=== PATIENT | female | born 1960 | race Caucasian/White ===

== ENCOUNTER 2024-01-04 00:41 | Emergency (ER) | payer MEDICARE, BC, SELFPAY ==
[2024-01-04 00:48] VITALS: BP 134/77; PULSE 74; RESP 18; TEMP 36.3; O2SAT 100; BMI 19.9
--- NOTE | 2024-01-04 01:00 | CRLHL7_ITS ---
For Patients: As a result of the Cures Act, medical imaging exams and procedure reports are released immediately into your electronic medical record. You may view this report before your referring provider. If you have questions, please contact your health care provider. Indication: Chest pain Technique: Two views of the chest Comparison: None Findings/Impression: No acute cardiopulmonary process detected. Dictated by Stanley Phillips MD @ 01/04/2024 2:29:38 AM (Electronically Signed)
--- NOTE | 2024-01-04 01:03 | ED_ITS ---
HPI - Chest Pain General Date Seen: 01/04/24 Chief Complaint: Chest Pain Stated Complaint: thinks she's having a heart attack Time Seen by Provider: 01/04/24 00:42 Source: patient Mode of arrival: ambulatory Limitations: no limitations History of Present Illness HPI narrative: Patient is a 63-year-old female presenting to emergency department for chest pain she states today she started noticing some left shoulder pain and she thought it was related to all yd work she was doing. She went to bed at about 10:00 o'clock and woke up a couple hours later noticing the pain is radiated to her left chest and left jaw. She was concerned because the pain was going away and took 3 of her 's nitro and she states has improved the pain. Admits she has had pain like this before and was told it was anxiety. Has had a previous stress test but this was over a decade ago she states. Was normal at that time. Only medications she takes Celebrex for right shoulder pain. She has started taking that today. States is a doll 3 of 10 left-sided chest pain currently and was a 7/10. Denies lightheadedness, dizziness, shortness of breath, abdominal pain, headache, vision changes, weakness, numbness. Does states she has some increased pain with deep breaths. No other concerns noted. Review of Systems Status of ROS Reports: 10 or more systems reviewed and unremarkable except as noted in History and below [facility] Social History Smoking Status: Former smoker Do you use any of these nicotine containing products: None Second hand tobacco smoke exposure: No How often do you have a drink containing alcohol: monthly or less How many standard drinks containing alcohol do you have on a typical day: 1 or 2 How often do you have six or more drinks on one occasion: Never AUDIT-C Alcohol total score: 1 Non-prescribed substance use: denies use service: No Exam Narrative Exam Narrative: Const: Well-nourished, Well-developed, in mild distress Eyes: PERRL, no conjunctival injection, and symmetrical lids HENT: Atraumatic external nose and ears. Moist mucous membranes. Neck: Symmetric, trachea midline, No thyromegaly. CVS: RRR, No murmurs or gallops. Peripheral pulses 2+ and equal in all extremities RESP: Unlabored respiratory effort. Clear to auscultation bilaterally. GI: Nontender/Nondistended, No rebound or guarding. MSK:Extremities w/o deformity, Normal Active ROM, tenderness to left-sided chest Skin: Warm, Dry. No rashes or lesions. Neuro: Normal Muscle tone, No focal neurological deficits. Psych: Awake, Alert, & Oriented x3. Appropriate mood and affect. Const Vital Signs, click to edit/add: Vital Signs - 24 hr 01/04/24 00:48 Temperature 97.4 F L Pulse Rate [Pulse Oximeter] 74 Respiratory Rate 18 Blood Pressure [Left Upper Arm] 134/77 Pulse Oximetry 100 Oxygen Delivery Method Room Air Course Vital Signs Vital signs: Initial Vital Signs Temperature 97.4 F L 01/04/24 00:48 Temperature Source Temporal Artery Scan 01/04/24 00:48 Pulse Rate 74 01/04/24 00:48 Pulse Rhythm Regular 01/04/24 00:48 Respiratory Rate 18 01/04/24 00:48 Blood Pressure 134/77 01/04/24 00:48 Blood Pressure Mean 96 01/04/24 00:48 Blood Pressure Position Supine 01/04/24 00:48 Pulse Oximetry 100 01/04/24 00:48 Oxygen Delivery Method Room Air 01/04/24 00:48 Vital Signs Temperature 97.4 F L 01/04/24 00:48 Pulse Rate 74 01/04/24 00:48 Respiratory Rate 18 01/04/24 00:48 Blood Pressure 134/77 01/04/24 00:48 Pulse Oximetry 100 01/04/24 00:48 Oxygen Delivery Method Room Air 01/04/24 00:48 Temperature 97.4 F L 01/04/24 00:48 Pulse Rate 74 01/04/24 00:48 Respiratory Rate 18 01/04/24 00:48 Blood Pressure 134/77 01/04/24 00:48 Pulse Oximetry 100 01/04/24 00:48 Oxygen Delivery Method Room Air 01/04/24 00:48 Medications Administered Medications: Generic Name Dose Route Start Last Admin Trade Name Freq PRN Reason Stop Dose Admin Lactated Ringer's 1,000 mls @ 1,000 mls/hr 01/04/24 03:19 01/04/24 03:15 Lactated Ringers 1000 Ml IV 01/04/24 04:18 1,000 mls/hr .Q1H ONE Administration Discontinued Medications Generic Name Dose Route Start Last Admin Trade Name Lary PRN Reason Stop Dose Admin Aspirin 324 mg 01/04/24 01:00 01/04/24 01:25 Aspirin 81 Mg Tab.Chew PO 01/04/24 01:01 324 mg ONCE ONE Administration Ketorolac Tromethamine 15 mg 01/04/24 01:39 01/04/24 01:47 Ketorolac 15 Mg/Ml Inj IVP 01/04/24 01:40 15 mg ONCE ONE Administration MDM - Chest Pain MDM Narrative Medical decision making narrative: Patient's 63-year-old female presenting for chest pain. The differential diagnosis of chest pain is broad and includes common etiologies such as musculoskeletal strain, GERD, pneumonia, etc. More serious etiologies considered include PE, coronary artery disease, pneumothorax, aortic dissection, aortic aneurysm. Of note when I did press on her chest she does state that reproduce the pain but it was not as severe as earlier. Considering palpitation is reproducing the pain this does seem more likely be musculoskeletal related specially because she states she did some yard work this morning. I will do chest x-ray, BMP, troponin, CBC, COVID/2/RSV, D-dimer and give her 324 of aspirin in the meantime. EKG and troponin returned showing no concerning abnormalities. Will repeat troponin. CBC and BMP showed no concerning findings. COVID/flu/RSV negative. D-dimer was elevated 0.86. Chest x-ray showed no concerning abnormalities. Due to the elevated D-dimer we will do a CTA to look for signs of a blood clot. Patient was starting to have more chest pain again and Toradol was given which she states improved her symptoms. This again helps me believe this might be more musculoskeletal related. Her heart score is 2. CTA are reviewed no acute abnormalities that would be causing her chest pain. There are some incidental findings as she can follow-up outpatient. Repeat troponin was within normal limits. At this time I do not believe she has any emergent causes of her chest pain. Of note her blood pressures did drop into the high 80s to low 90s systolic. She states her blood pressure is usually around 100-110. I did give her 1 L of fluids which did improve her most recent blood pressure to 102 systolic. She has been able to ambulate without any symptoms. Chest pain has not fully gone away yet but again is reproducible with palpation. Patient does not live in the area so informed and she is to follow up with her primary care provider about this chest pain. Due to this I will not schedule her an outpatient stress test in [place]. She is agreeable to this plan. I believe the pain is musculoskeletal in nature and she will be discharged. She is agreeable to this plan. Lab Data Labs: Lab Results 01/04/24 01/04/24 01/04/24 Range/Units 01:00 01:03 02:54 WBC 8.35 (4.50-11.00) K/uL RBC 3.80 L (4.00-5.20) m/uL Hgb 12.4 (12.0-16.0) gm/dL Hct 37.2 (33.0-51.0) % MCV 98 (80-100) fL MCH 33 (26-34) pg MCHC 33 (32-36) gm/dL RDW Coeff of Jose 11.3 L (11.5-15.5) % Plt Count 289 (140-440) K/uL Neut % (Auto) 46.9 (42.0-72.0) % Lymph % (Auto) 43.5 (20-44) % Tyler % (Auto) 7.5 (0.0-11.0) % Eos % (Auto) 1.6 (0.0-7.0) % Baso % (Auto) 0.4 (0.0-3.0) % Neut # (Auto) 3.92 (1.7-7.0) K/uL Lymph # (Auto) 3.63 H (0.90-2.90) K/uL Tyler # (Auto) 0.60 (0.00-0.90) K/UL Eos # (Auto) 0.13 (0.00-0.50) K/uL Baso # (Auto) 0.03 (0.00-0.30) K/uL Abs Immat Gran (auto) 0.01 (0.00-0.30) K/uL Imm/Tot Granulo (auto) 0.1 % D-Dimer Quant (PE/DVT) 0.86 H (0.00-0.50) ug/ml Sodium 137 (135-149) mmol/L Potassium 3.6 (3.6-5.1) mmol/L Chloride 102 (96-114) mmol/L Carbon Dioxide 28 (20-32) mmol/L Anion Gap 7 (7-15) mEq/L BUN 19 (7-30) mg/dL Creatinine 0.7 (0.5-1.5) mg/dL Estimated Creat Clear 46.59 Estimated GFR 96 ml/min Glucose 108 (60-115) mg/dL Calcium 9.3 (8.4-10.6) mg/dL Troponin I < 0.01 L < 0.01 L (0.01-0.04) ng/mL SARS-CoV-2 (PCR) Negative SARS-CoV-2 (Negative) Influenza Type A (PCR) Negative PCR FLU A (Negative) Influenza Type B (PCR) Negative PCR FLU B (Negative) RSV (PCR) Negative PCR RSV (Negative) Imaging Data Chest x-ray: Attestation: I have reviewed the pertinent imaging results. Radiologist's impression: No acute cardiopulmonary process detected. Dictated by Stanley Phillips MD @ 01/04/2024 2:29:38 AM CTA chest: Attestation: I have reviewed the pertinent imaging results. Radiologist's impression: 1. No acute abnormality appreciated. 2. Few scattered pulmonary nodules measuring up to 5 millimeters. Follow-up CT in 12 months may be considered for further evaluation. 3. Mild aneurysmal dilation of the ascending aorta measuring 4.0 centimeters. 4. Calcified atherosclerosis of the coronary arteries and aorta. Please note that all CT scans at this facility use dose modulation, iterative reconstruction, and/or weight-based dosing when appropriate to reduce radiation dose to as low as reasonably achievable. Dictated by Stanley Phillips MD @ 01/04/2024 2:56:00 AM ECG Data Attestation: I personally reviewed and interpreted this ECG as follows: Prior ECG tracings: not available for review Interpretation: Initial EKG at 00:49 Normal sinus rhythm with a rate of 73 beats per minute, normal intervals, normal axis, no ST or T-wave abnormalities. Repeat EKG when chest pain worsened at 01:37 normal sinus rhythm with a rate of 62 beats per minute, normal intervals, normal axis, no ST or T-wave abnormalities. Looks same as the EKG earlier this morning Discharge Plan Discharge Clinical Impression: Atypical chest pain Patient Disposition: Home, Self-Care Condition: Stable Instructions: Chest Wall Pain (ED) Additional Instructions: Take Tylenol and NSAIDs for your pain. Your CTA did show some scattered pulmonary nodules that she should follow up with the primary care provider within the next 12 months for re-evaluation. There is also mild aneurysmal dilation of the ascending aorta measuring about 4 cm but this does not require immediate attention and can also be follow-up with your primary care provider. Return to emergency department for re-evaluation for new or worsening symptoms. Follow Up/Referrals: Dilma Adler MD [Primary Care Provider] - Stand Alone Forms: Your Image by Brooke Info Instructions
[2024-01-04 01:13] LABS: Basophils Absolute Auto 0.03 K/uL (0.00-0.30); Basophils Percent Auto 0.4 % (0.0-3.0); Eosinophils Absolute Auto 0.13 K/uL (0.00-0.50); Eosinophils Percent Auto 1.6 % (0.0-7.0); Hematocrit 37.2 % (33.0-51.0); Hemoglobin* 12.4 gm/dL (12.0-16.0); Immature Granulocytes Abs Auto 0.01 K/uL (0.00-0.30); Immature Granulocytes Pct Auto 0.1 %; Lymphocytes Absolute Auto 3.63 K/uL (0.90-2.90); Lymphocytes Percent Auto 43.5 % (20-44); Mean Corpuscular HGB Conc 33 gm/dL (32-36); Mean Corpuscular Hemoglobin 33 pg (26-34); Mean Corpuscular Volume 98 fL (80-100); Monocytes Percent Auto 7.5 % (0.0-11.0); Neutrophils Absolute Auto 3.92 K/uL (1.7-7.0); Neutrophils Percent Auto 46.9 % (42.0-72.0); Platelet Count* 289 K/uL (140-440); RDW Coefficient of Variation % 11.3 % (11.5-15.5); White Blood Count* 8.35 K/uL (4.50-11.00)
[2024-01-04 01:15] LABS: Slide Review Reflex No
--- OUTSIDE RECORDS SUMMARY | 2024-01-04 01:17 | XMS_ITS | Clinical Summary ---
Author Organization [facility] Address [address] [place] [phone] Phone Care Team Providers Care English And Reading Instructor Name Role Phone Toby Barbosa MD Primary Care Provider [phone] Allergies Active Allergy Reactions Criticality Noted Date Comments Sulfa Drugs Adverse reaction Adhesive Tape RASH 02/21/2014 Medications Medication Sig Dispensed Refills Start Date End Date Status Multiple Vitamin (MULTIVITAMIN ADULT OR) Take 1 Tablet by mouth one time a day. Active [place]-3 Fatty Acids (FISH OIL OR) Take 1 Capsule by mouth one time a day. [place] 3 1500 mg, EPA 850 mg, DHA 450 mg, DPA 100 mg Active magnesium glycinate 120 MG capsule Take 4 Capsules by mouth one time a day. At supper time. Active Coenzyme Q10 (COQ10 OR) Take by mouth one time a day. L-carnitine fumarate included Active NEW DRUG 1 Each. Liposomal glutathyone Active NEW DRUG 1 Each. Liposomal-Vitamin C Active NEW DRUG 1 Each. PhytoB-L-4x Active Probiotic Product (PROBIOTIC OR) Take by mouth with meals. Digestzymes Active NEW DRUG 1 Each two times a day. GI-Detox Active NEW DRUG 2 Each at bedtime. Insomnitol Active B Complex Vitamins (B COMPLEX OR) Take 1 Tablet by mouth one time a day. B-[place] Active NEW DRUG 1 Each two times a day. Advance Tudca Active NEW DRUG [address] Reyna's Bitters #9 Active celecoxib (CeleBREX) 200 MG capsuleIndications:P rimary osteoarthritis of right knee,Impingement syndrome, shoulder, right Take 1 Capsule by mouth one time a day. 31 Capsule 1 12/30/2023 Active Hospital, Clinic, or Other Facility Administered Medication Ordered Dose Route Frequency Start Date End Date Status triamcinolone acetonide (Kenalog-40) 40 MG/ML injection 40 mgIndications:Primary osteoarthritis of right knee 40 mg IX ONCE 12/30/2023 03/29/2024 Active Active Problems Problem Noted Date Diagnosed Date Chronic right shoulder pain 12/30/2023 Vertigo 11/27/2023 Recurrent herpes labialis 12/11/2011 Osteoarthritis 12/11/2011 Hyperlipidemia 12/11/2011 Encounters Date Type Department Care Team Description 12/30/2023 10:30 AM CDT Office Visit [facility] [address] [facility] [address] [place] [address] Siomara Mcgarry, PT Chronic right shoulder pain (Primary Dx) 12/30/2023 10:00 AM CDT Office Visit [place] [address] [facility] ORTHOPEDICS [address] [place] [phone] Dana Toussaint I, PAJuliánC Primary osteoarthritis of right knee (Primary Dx); Impingement syndrome, shoulder, right 12/30/2023 Plan of Care Documentation [address] PHYSICAL THERAPY [address] [place] [address] 12/30/2023 Travel 12/17/2023 2:30 PM CDT Office Visit [address] PHYSICAL THERAPY [address] [place] [address] Christian Mcgarry, PT Vertigo (Primary Dx) 12/17/2023 Travel 11/30/2023 9:30 AM CDT Office Visit [facility] OT[facility] [address] [place] [address] Pauline Lee, SAUSAGE MACHINE OPERATOR, DOORPERSON OR LUGGAGE PORTER Asymmetrical hearing loss (Primary Dx); Sensorineural hearing loss (SNHL) of both ears; Dizziness 11/30/2023 Travel 11/27/2023 Plan of Care Documentation [facility] [address] [facility] [address] [place] [address] 11/18/2023 12:30 PM CDT Office Visit [address] PHYSICAL THERAPY [address] [place] [phone] Christian Mcgarry P, PT Dizziness (Primary Dx); Vertigo 11/18/2023 Travel 11/02/2023 1:00 PM CDT Ancillary Procedure [place] [address] [facility] RADIOLOGY MRI [address] [place] [phone] Pauline Lee APRN, DOORPERSON OR LUGGAGE PORTER Asymmetrical hearing loss 11/02/2023 Travel 10/20/2023 12:00 PM CDT Office Visit [facility] OTOLARYNGOLOGY [address] [place] [address], [place] [address] Pauline Lee APRN, STAN Asymmetrical hearing loss (Primary Dx); Dizziness; Sensorineural hearing loss (SNHL) of both ears 10/20/2023 11:00 AM CDT Office Visit [facility] AUDIOLOGY [address] [place] [address], [place] [address] Mike Woodward AuD Sensory hearing loss, bilateral (Primary Dx) 10/20/2023 Travel 10/15/2023 - 10/15/2023 11:59 PM CDT Hospital Encounter OS FILMS DEPARTMENT Dana Toussaint PA-C Impingement syndrome, shoulder, right Discharge Disposition: Discharged from Last 3 Months Immunizations Name Administration Dates Next Due Hepatitis B, Adult 11/10/2008,06/08/2008, 009 Influenza Intradermal (18-64 Yrs) Flu Clinic 01/29/2016 Influenza Quad Preservative Free 01/21/2019,01/18,02/12/2015 Influenza Trivalent Preservative Free 02/01/2013 ,02/16/2011,03/29/2010 Influenza Trivalent With Preservative 02/15/2014 ,02/13/2012 TD >7yrs With Preservative 05/14/2008,07/28/1995 Tdap (7 years and older) 03/19/2018,05/10/2008 Zoster Zostavax (Shingles) 06/21/2015 Surgical History Surgery Date Site/Laterality Comments SECTION x 4 DILATION AND CURETTAGE OF UTERUS due to menorrhagia KNEE ARTHROSCOPY 04/20/2002 - 04/19/2003 right UMBILICAL HERNIA REPAIR 04/20/1998 - 04/19/1999 ENDOMETRIAL ABLATION COLONOSCOPY,FLEX,SCREEN 05/03/2014 repeat in [address] yu COLONOSCOPY,FLEX,SCREEN 05/10/2019 TOTAL ABDOM HYSTERECTOMY 05/14/2013 Bilateral Medical History Medical History Date Comments Osteoarthritis of knee Recurrent cold sores Cardiomyopathy, idiopathic (HCC) 2004 last Echo & Stress test 07/2011 - normal Back pain, chronic low back Hyperlipidemia, mixed Stress incontinence, female Family History Medical History Relation Comments Hypothyroidism Brother Hypothyroidism Daughter Colon Cancer Father Breast Cancer Maternal Grandmother Hypothyroidism Mother Lipid Elevation Mother Cancer Paternal Grandfather pancreatic Cardiovascular Disease Paternal Grandfather Hypothyroidism Sister Relation Status Comments Brother Daughter Father Maternal Grandmother Mother Paternal Grandfather Sister Social History Tobacco Use Types Packs/Day Years Used Date Smoking Tobacco: Former Cigarettes 1.5 14 0 04/20/1974 - 04/20/1988 Passive Smoke Exposure: Past Smokeless Tobacco: Never Tobacco Cessation:Counseling Given: Not Answered Alcohol Use Standard Drinks/Week Comments Yes 2.5 (1 standard drink = 0.6 oz p ure alcohol) Social Connection and Isolat ion Panel [NHANES] Answer Date Recorded In a typical week, how many times do you talk on the phone with family, friends, or neighbors? Three times a week 06/22/2023 How often do you get togethe r with friends or relatives? Once a week 06/22/2023 How often do you attend chur or gnosticism services? More than 4 times per year 06/22/2023 Do you belong to any clubs o r organizations such as yarsani groups, unions, fraternal or athletic groups, or school groups? Yes 06/22/2023 How often do you attend meet ings of the clubs or organizations you belong to? More than 4 times per year 06/22/2023 Are you , , di vorced, , never , or living with a partner? 06/22/2023 AUDIT-C Answer Date Recorded Q1: How often do you have a drink containing alc ohol? Monthly or less 06/22/2023 Q2: How many drinks containi ng alcohol do you have on a typical day when you are drinking? 1 or 2 06/22/2023 Q3: How often do you have si x or more drinks on one occasion? Never 06/22/2023 PHQ-2 Answer Date Recorded PHQ-2 Total 0 10/20/2023 [facility] - Occupational Stress Questionnaire Answer Date Recorded Do you feel stress - tense, restless, nervous, or anxious, or unable to sleep at night because your mind is troubled all the time - these days? To some extent 06/22/2023 Exercise Vital Sign Answer Date Recorde d On average, how many days pe r week do you engage in moderate to strenuous exercise (like a brisk walk)? 2 days 06/22/2023 On average, how many minutes do you engage in exercise at this level? 60 min 06/22/2023 Sex and Gender Information Value Date Recorded Sex Assigned at Not on file Gender Identity Not on file Sexual Orientation Not on file Job Start Date Occupation Industry Not on file Not on file Not on file Obstetrics History Para Term AB IAB SAB Ectopic Molar Multiple Living Live Births 4 4 4 0 4 Date Outcome GA Total Labor Labor/2nd/3rd Weight Sex Type Anes PTL Marta A1 A5 Name Clin Term Term Term Term Last Filed Vital Signs Vital Sign Reading Time Taken Comments Blood Pressure 104/58 11/30/2023 9:53 AM CDT Pulse 67 12/30/2023 9:52 AM CDT Temperature 36.1 ??C (97 ??F) 12/30/2023 9:52 AM CDT Respiratory Rate 16 03/04/2016 1:20 PM [facility] Oxygen Saturation 98% 12/30/2023 9:52 AM CDT Inhaled Oxygen Concentration - - Weight 54.8 kg (120 lb 13 oz) 12/30/2023 9:52 AM CDT Height 162.9 cm (5' 4.13) 06/22/2023 1:50 PM CS T Body Mass Index 20.66 06/22/2023 1:50 PM [facility] Plan of Treatment Upcoming Encounters Date Type Department Care Team (Late st Contact Info) Description 01/11/2024 9:45 AM CDT Appointment [facility] [address] [facility] PHYSICAL TH[facility]APY [address] [place] [address] Siomara Mcgarry, PT [address] [place] [phone] 01/27/2024 3:30 PM CDT Appointment [facility] PHYSICAL THERAPY [address] [place] [phone] Siomara Mcgarry, PT [address] [place] [address] 01/29/2024 9:45 AM CDT Appointment [facility] PHYSICAL THERAPY [address] [place] [phone] Siomara Mcgarry, PT [address] [place] [address] 02/01/2024 9:45 AM CDT Appointment [facility] PHYSICAL THERAPY [address] [place] [address] Siomara Mcgarry, PT [address] [place] [phone] 02/03/2024 9:45 AM CDT Appointment [facility] PHYSICAL THERAPY [address] [place] [address] Siomara Mcgarry, PT [address] [place] [address] Health Maintenance Due Date Last Done Comments CT Colonography 1960 Cologuard 1958 FIT/FOBT 1960 Sigmoidoscopy 1960 COVID-19 Vaccine (#1) 07/07/1963 Shingrix (Zoster recombinant) vaccine (Standing Order) (1 of 2) 08/16/2015 Pneumococcal Vaccine: 65+ yrs (Standing Order) (1 of 1 - PCV) 07/07/2023 Influenza Vaccine Seasonal (Standing Order) (#1) 2023 01/21/2019, 02/04/2016, 01/29/2016, Additional history exists MAMMO,SCREEN 07/07/2024 07/08/2023, 06/19, 05/03/2014, Additional history exists TETANUS (Standing Order) 03/19/2028 018, 05/14/2008, 05/10/2008, Additional history exists Colonoscopy 05/10/2029 05/10/2019, 05/03/2014 Colorectal Cancer Screening 05/10/2029 Hepatitis B Vaccine (Standing Order) Completed 11/10/2008, 06/08/2008, 05/10/2008 PERTUSSIS (Standing Order) Completed 03/19/2018, WELCOME TO MEDICARE Completed 06/22/2023 DXA,FEMALES AGE 65 OR GREATER Completed 07/08/2023 HPV Vaccine (Standing Order) Aged Out No longer eligible based on patient's age to complete this topic Procedures Procedure Name Priority Date/Time Associated Diagnosis Comments DRAIN/INJECT LARGE JOINT/BURSA Routine 12/30/2023 10:12 AM CDT Primary osteoarthritis of right knee MR BRAIN WO W CONTRAST Routine 11/02/2023 2:07 PM CDT Asymmetrical hearing loss MR IAC WO W CONTRAST Routine 11/02/2023 2:07 PM CDT Asymmetrical hearing loss TYMPANOMETRY Routine 10/20/2023 12:00 AM CDT Sensory hearing loss, bilateral COMPREHENSIVE HEARING TEST Routine 10/20/2023 12:00 AM CDT Sensory hearing loss, bilateral OS XR FLUORO GUIDED INJECTION Routine 10/15/2023 12:00 AM CDT Impingement syndrome, shoulder, right DXA SPINE HIPS AND OR PERIPHERAL Routine 07/08/2023 2:45 PM CDT Postmenopausal MAMM ALONDRA SCREEN DIGITAL BILAT Routine 07/08/2023 2:25 PM CDT Encounter for screening mammogram for malignant neoplasm of breast COLONOSCOPY,FLEX,DIAG NOSTIC 05/10/2019 12:00 AM [employer] [facility] from Last 3 Months or Most Recently Relevant to Health Maintenance Results * MR IAC WO W CONTRAST (11/02/2023 2:07 PM CDT) Anatomical Region Laterality Modality Magnetic Resonan ce 11/02/2023 2:07 PM CDT Narrative 11/02/2023 3:56 PM CDT This document is currently in Final Status Exam MR IAC WO W CONTRAST, MR BRAIN WO W CONTRAST CLINICAL INFORMATION: Hearing loss, sensorineural; ??Other specified hearing loss, bilateral; COMPARISON: None. FINDINGS: There is no restricted diffusion in the brain. Normal position of the cerebellar tonsils. No hydrocephalus. There is mild bilateral periventricular and subcortical white matter T2 hyperintensity which is nonspecific but most likely due to sequela of chronic small vessel ischemic disease given the patient's age. There is no intracranial hemorrhage, mass effect, or midline shift. The normal major intracranial vascular flow voids are present. The cochleae and semicircular canals are unremarkable. There is no internal auditory canal mass or cerebellopontine angle mass. The visualized portions of the 7th and 8th cranial nerves are unremarkable. There is no abnormal contrast enhancement in the internal auditory canals. There is no abnormal intracranial contrast enhancement. The globes and orbits are symmetric and grossly unremarkable. The visualized paranasal sinuses and right mastoid air cells are clear. There is nonspecific fluid in the left mastoid air cells. IMPRESSION: No evidence of acute intracranial pathology and no etiology for sensorineural hearing loss identified. Dictated By: Calos Cooper MD 11/02/2023 2:57 PM Edited By: PATRICE 11/02/2023 3:11 PM Electronically Signed: Calos Cooper MD 11/02/2023 3:56 PM Procedure Note Calos Cooper MD - 11/02/2023 This document is currently in Final Status Exam MR IAC WO W CONTRAST, MR BRAIN WO W CONTRAST CLINICAL INFORMATION: Hearing loss, sensorineural; Other specifiedhearing loss, bilateral; COMPARISON: None. FINDINGS: There is no restricted diffusion in the brain. Normal positionof the cerebellar tonsils. No hydrocephalus. There is mild bilateralperiventricular and subcortical white matter T2 hyperintensity which isnonspecific but most likely due to sequela of chronic small vesselischemic disease given the patient's age. There is no intracranialhemorrhage, mass effect, or midline shift. The normal major intracranialvascular flow voids are present. The cochleae and semicircular canals are unremarkable. There is nointernal auditory canal mass or cerebellopontine angle mass. Thevisualized portions of the 7th and 8th cranial nerves are unremarkable.There is no abnormal contrast enhancement in the internal auditory canals.There is no abnormal intracranial contrast enhancement. The globes and orbits are symmetric and grossly unremarkable. Thevisualized paranasal sinuses and right mastoid air cells are clear. Thereis nonspecific fluid in the left mastoid air cells. IMPRESSION: No evidence of acute intracranial pathology and no etiologyfor sensorineural hearing loss identified. Dictated By: Calos Cooper MD 11/02/2023 2:57 PM Edited By: PATRICE 11/02/2023 3:11 PM Electronically Signed: Calos Cooper MD 11/02/2023 3:56 PM Pauline Lee SAUSAGE MACHINE OPERATOR, DOORPERSON OR LUGGAGE PORTER EC MRI ORDERA BLES * MR BRAIN WO W CONTRAST (11/02/2023 2:07 PM CDT) Anatomical Region Laterality Modality Head Magnetic Resonan ce 11/02/2023 2:07 PM CDT Narrative 11/02/2023 3:56 PM CDT This document is currently in Final Status Exam MR IAC WO W CONTRAST, MR BRAIN WO W CONTRAST CLINICAL INFORMATION: Hearing loss, sensorineural; ??Other specified hearing loss, bilateral; COMPARISON: None. FINDINGS: There is no restricted diffusion in the brain. Normal position of the cerebellar tonsils. No hydrocephalus. There is mild bilateral periventricular and subcortical white matter T2 hyperintensity which is nonspecific but most likely due to sequela of chronic small vessel ischemic disease given the patient's age. There is no intracranial hemorrhage, mass effect, or midline shift. The normal major intracranial vascular flow voids are present. The cochleae and semicircular canals are unremarkable. There is no internal auditory canal mass or cerebellopontine angle mass. The visualized portions of the 7th and 8th cranial nerves are unremarkable. There is no abnormal contrast enhancement in the internal auditory canals. There is no abnormal intracranial contrast enhancement. The globes and orbits are symmetric and grossly unremarkable. The visualized paranasal sinuses and right mastoid air cells are clear. There is nonspecific fluid in the left mastoid air cells. IMPRESSION: No evidence of acute intracranial pathology and no etiology for sensorineural hearing loss identified. Dictated By: Calos Cooper MD 11/02/2023 2:57 PM Edited By: 11/02/2023 3:11 PM Electronically Signed: Calos Cooper MD 11/02/2023 3:56 PM Procedure Note Calos Cooper MD - 11/02/2023 This document is currently in Final Status Exam MR IAC WO W CONTRAST, MR BRAIN WO W CONTRAST CLINICAL INFORMATION: Hearing loss, sensorineural; Other specifiedhearing loss, bilateral; COMPARISON: None. FINDINGS: There is no restricted diffusion in the brain. Normal positionof the cerebellar tonsils. No hydrocephalus. There is mild bilateralperiventricular and subcortical white matter T2 hyperintensity which isnonspecific but most likely due to sequela of chronic small vesselischemic disease given the patient's age. There is no intracranialhemorrhage, mass effect, or midline shift. The normal major intracranialvascular flow voids are present. The cochleae and semicircular canals are unremarkable. There is nointernal auditory canal mass or cerebellopontine angle mass. Thevisualized portions of the 7th and 8th cranial nerves are unremarkable.There is no abnormal contrast enhancement in the internal auditory canals.There is no abnormal intracranial contrast enhancement. The globes and orbits are symmetric and grossly unremarkable. Thevisualized paranasal sinuses and right mastoid air cells are clear. Thereis nonspecific fluid in the left mastoid air cells. IMPRESSION: No evidence of acute intracranial pathology and no etiologyfor sensorineural hearing loss identified. Dictated By: Calos Cooper MD 11/02/2023 2:57 PM Edited By: 11/02/2023 3:11 PM Electronically Signed: Calos Cooper MD 11/02/2023 3:56 PM Pauline Lee SAUSAGE MACHINE OPERATOR, DOORPERSON OR LUGGAGE PORTER EC MRI ORDERA BLES * TYMPANOMETRY (10/20/2023 12:00 AM CDT) 10/20/2023 Mike Woodward Felix EC PROCEDURES * COMPREHENSIVE HEARING TEST (10/20/2023 12:00 AM CDT) 10/20/2023 Mike Woodward Felix EC PROCEDURES * OS XR FLUORO GUIDED INJECTION (10/15/2023 12:00 AM CDT) 10/15/2023 Narrative Procedure Note 10/16/2023 The actual exam was performed at [facility] on 10/15/2023. This exam does not have a report residing in this EMR. Please check for ascanned in report, Care Everywhere Outside Records, or call the performinglocation for the report. This order was placed into the system and automatically finalized on10/16/2023. Dana Toussaint PA-C EC OS FILMS AUDELIA GING ORDERABLES * DXA SPINE HIPS AND OR PERIPHERAL (07/08/2023 2:45 PM CDT) Anatomical Region Laterality Modality Spine, L-spine, Hip, Pelvis, Other Radiographic Imaging 07/08/2023 2:45 PM CDT Narrative 07/08/2023 3:28 PM CDT This document is currently in Final Status Exam DXA SPINE HIPS AND OR PERIPHERAL CLINICAL INFORMATION: DXA exam; ??Asymptomatic menopausal state. NOTE: Patient Wt: 123 lb 9.1 oz (56.1 kg). COMPARISON: None. FINDINGS: The T-score in the L1-L4 vertebral bodies is -1.4 which is consistent with osteopenia. The T-score in the right femoral neck is -1.6 which is consistent with osteopenia. The T-score in the left femoral neck is -1.4 which is consistent with osteopenia. The 10-year risk of a major osteoporotic fracture is 8.1% and of a hip fracture is 0.9%. Please refer to the computer-generated printouts in PACS for bone mineral density values if necessary. Dictated By: Calos Cooper MD 07/08/2023 2:55 PM Edited By: MADDY 07/08/2023 3:11 PM Electronically Signed: Calos Cooper MD 07/08/2023 3:28 PM Procedure Note Calos Cooper MD - 07/08/2023 This document is currently in Final Status Exam DXA SPINE HIPS AND OR PERIPHERAL CLINICAL INFORMATION: DXA exam; Asymptomatic menopausal state. NOTE:Patient Wt: 123 lb 9.1 oz (56.1 kg). COMPARISON: None. FINDINGS: The T-score in the L1-L4 vertebral bodies is -1.4 which isconsistent with osteopenia. The T-score in the right femoral neck is -1.6 which is consistent withosteopenia. The T-score in the left femoral neck is -1.4 which is consistent withosteopenia. The 10-year risk of a major osteoporotic fracture is 8.1% and of a hipfracture is 0.9%. Please refer to the computer-generated printouts in PACS for bone mineraldensity values if necessary. Dictated By: Calos Cooper MD 07/08/2023 2:55 PM Edited By: MADDY 07/08/2023 3:11 PM Electronically Signed: Calos Cooper MD 07/08/2023 3:28 PM Toby Barbosa MD EC DEXA ORDERABLES * MAMM ALONDRA SCREEN DIGITAL BILAT (07/08/2023 2:25 PM CDT) Anatomical Region Laterality Modality Breast Bilateral Mammography 07/08/2023 2:25 PM CDT Narrative 07/09/2023 4:31 PM CDT This document is currently in Final Status Exam MAMM ALONDRA SCREEN DIGITAL BILAT COMPARISON: 07/14/2017. TECHNICAL: Bilateral CC and MLO views, including tomosynthesis. ?? Computer-Aided Detection System was utilized. BREAST DENSITY: ??There are scattered areas of fibroglandular density. Interval weight loss increases breast density. FINDINGS: No suspicious masses or calcifications identified. No architectural distortion. IMPRESSION: No mammographic evidence of malignancy identified. Follow up mammography according to the [employer] guidelines is recommended. BI-RADS 1: Negative. TRACKING PURPOSES: ??Return to annual screening. Dictated By: Dr. Qamar Adair 07/09/2023 2:01 PM Edited By: MATEO 07/09/2023 3:34 PM Electronically Signed: Dr. Qamar Adair 07/09/2023 4:31 PM Procedure Note Nick Adair MD - 07/09/2023 This document is currently in Final Status Exam MAMM ALONDRA SCREEN DIGITAL BILAT COMPARISON: 07/14/2017. TECHNICAL: Bilateral CC and MLO views, including tomosynthesis. Computer-Aided Detection System was utilized. BREAST DENSITY: There are scattered areas of fibroglandular density. Interval weight loss increases breast density. FINDINGS: No suspicious masses or calcifications identified. Noarchitectural distortion. IMPRESSION: No mammographic evidence of malignancy identified. Follow upmammography according to the [employer] guidelines isrecommended. BI-RADS 1: Negative. TRACKING PURPOSES: Return to annual screening. Dictated By: Dr. Qamar Adair 07/09/2023 2:01 PM Edited By: MATEO 07/09/2023 3:34 PM Electronically Signed: Dr. Qamar Adair 07/09/2023 4:31 PM Toby Barbosa MD EC MAMMOGRAPHY ORDER SOPHIA * COLONOSCOPY,FLEX,DIAGNOSTIC (05/10/2019 12:00 AM [facility]) 05/10/2019 05/10/2019 Provider Abstract EC PROCEDURES [facility] from Last 3 Months or Most Recently Relevant to Health Maintenance Care Teams English And Reading Instructor Relationship Specialty Start Date End Date Toby Barbosa MD [address] [facility] [place] [id number] PCP - General Family Medicine 08/18/23
--- OUTSIDE RECORDS SUMMARY | 2024-01-04 01:17 | XMS_ITS | Encounter Summary ---
Author Organization [facility] Address [address] [address] Phone Care Team Providers Care School Year Nanny Name Role Phone Toby Barbosa MD Primary Care Provider Reason for Visit * Therapy (Routine) - Authorized Specialty Diagnoses / Procedures Referred By Kelvin tucker Referred To Contact Physical Therapy Diagnoses Impingement syndrome, shoulder, right Dana Toussaint PA-C [address] [place] [address] Referral ID Status Reason Start Date Expiration Date V isits Requested Visits Authorized [id number] Authorized 12/30/2023 12/29/2024 99 99 Encounter Details Date Type Department Care Team (Late st Contact Info) Description 12/30/2023 10:30 AM CDT Office Visit [facility] [address] CLINIC PHYSICAL THERAPY [address] [place], [place] [address] Siomara Mcgarry, PT [address] [place] [address] Chronic right shoulder pain (Primary Dx) Social History Tobacco Use Types Packs/Day Years Used Date Smoking Tobacco: Former Cigarettes 1.5 14 0 04/20/1974 - 04/20/1988 Passive Smoke Exposure: Past Smokeless Tobacco: Never Alcohol Use Standard Drinks/Week Comments Yes 2.5 [...] How often do you attend chur or congregation services? More than 4 times per year 06/22/2023 Do you belong to any clubs o r organizations such as pentecostalism groups, unions, fraternal or athletic groups, or [...] Answer Date Recorded PHQ-2 Total 0 10/20/2023 [facility]at ional [facility] - Occupational Stress Questionnaire Answer Date Recorded [...] file Not on file Not on file documented as of this encounter Plan of Treatment Upcoming Encounters Date Type Department Care Team (Late st Contact Info) Description 01/11/2024 9:45 AM CDT Appointment [facility] 34 CLINIC PHYSICAL THERAPY [address] [place] [address] Siomara Mcgarry, PT [address] [place] [address] 01/27/2024 3:30 PM CDT Appointment [place] [address] [facility] PHYSICAL TH[facility]APY [address] [place] [address] Siomara Mcgarry, PT [address] [place] [phone] 01/29/2024 9:45 AM CDT Appointment [facility] 34 CLINIC PHYSICAL THERAPY [address] [place] [address] Siomara Mcgarry, PT [address] [place] [address] 02/01/2024 9:45 AM CDT Appointment [facility] 34 CLINIC PHYSICAL THERAPY [address] [place] [address] Siomara Mcgarry, PT [address] [place] [phone] 02/03/2024 9:45 AM CDT Appointment [facility] 34 CLINIC PHYSICAL THERAPY [address] [place] [address] Siomara Mcgarry, PT [address] [place] [address] Scheduled Referrals Name Type Priority Associated Diagnoses Orde r Schedule APPT WITH PHYSICAL THERAPY [facility] REFERRAL Routine Impingement syndrome, shoulder, right Ordered: 12/30/2023 documented as of this encounter Visit Diagnoses Diagnosis Chronic right shoulder pain- Primary Pain in joint, shoulder region documented in this encounter Care Teams School Year Nanny Relationship Specialty Start Date End Date Toby Barbosa MD [address] [facility] [place] [address] PCP - General Family Medicine 08/18/23 documented as of this encounter
--- OUTSIDE RECORDS SUMMARY | 2024-01-04 01:17 | XMS_ITS | Encounter Summary ---
Author Organization [facility] Address [address] [address] Phone Care Team Providers Care Conveyor Line Bakery Worker Name Role Phone Toby Barbosa MD Primary Care Provider [phone] Encounter Details Date Type Department Care Team (Latest Contact Info) Description 12/30/2023 Travel Social History Tobacco Use Types Packs/Day Years [...] 06/22/2023 How often do you attend chur ch or yarsani services? More than 4 times per year 06/22/2023 Do you belong to any clubs o r organizations such as taoist groups, unions, fraternal or athletic groups, or [...] Answer Date Recorded PHQ-2 Total 0 10/20/2023 [facility] - Occupational Stress Questionnaire Answer Date Recorded [...] Info) Description 01/11/2024 9:45 AM CDT Appointment [place] [address] [facility] PHYSICAL THERAPY [address] [place] [address] Siomara Mcgarry, PT [address] [place] [address] 01/27/2024 3:30 PM CDT Appointment [facility] 34 CLINIC PHYSICAL THERAPY [address] [place] [address] Siomara Mcgarry, PT [address] [place] [phone] 01/29/2024 9:45 AM CDT Appointment [facility] 34 CLINIC PHYSICAL THERAPY [address] [place] [address] Siomara Mcgarry, PT [address] [place] [address] 02/01/2024 9:45 AM CDT Appointment [facility] 34 CLINIC PHYSICAL THERAPY [address] [place] [address] [phone] Siomara Mcgarry, PT [address] [place] [address] 02/03/2024 9:45 AM CDT Appointment [facility] 34 CLINIC PHYSICAL THERAPY [address] [place] [address] [phone] Siomara Mcgarry, PT [address] [place] [address] documented as of this encounter Visit Diagnoses Not on filedocumented in this encounter Care Teams Conveyor Line Bakery Worker Relationship Specialty Start Date End Date Toby Barbosa MD [address] [place] [address] PCP - General Family Medicine 08/18/23 documented as of this encounter
--- OUTSIDE RECORDS SUMMARY | 2024-01-04 01:17 | XMS_ITS | Encounter Summary ---
Author Organization [facility] Address [address] [address] Phone Care Team Providers Care Blood Donor Recruiter Supervisor Name Role Phone Toby Barbosa MD Primary Care Provider [phone] Encounter Details Date Type Department Care Team (Late st Contact Info) Description 12/30/2023 Plan of Care Documentation 34 CLINIC PHYSICAL THERAPY [address] [place] [address] Social History Tobacco Use Types Packs/Day Years [...] often do you attend chur ch or sabianist services? More than 4 times per year 06/22/2023 Do you belong to any clubs o r organizations such as baptist groups, unions, fraternal or athletic groups, or [...] Answer Date Recorded PHQ-2 Total 0 10/20/2023 [facility] Occupat ional [facility] - Occupational Stress Questionnaire Answer Date [...] Info) Description 01/11/2024 9:45 AM CDT Appointment 34 CLINIC PHYSICAL THERAPY [address] [place] [address] Siomara Mcgarry, PT [address]05 [place] [phone] 01/27/2024 3:30 PM CDT Appointment 34 CLINIC PHYSICAL THERAPY [address] [place] [address] Siomara Mcgarry, PT [address] [place] [phone] 01/29/2024 9:45 AM CDT Appointment 34 CLINIC PHYSICAL THERAPY [address] [place] [address] Siomara Mcgarry, PT [address] [place] [phone] 02/01/2024 9:45 AM CDT Appointment 34 [facility]INIC PHYSICAL THERAPY [address] [place] [address] Siomara Mcgarry, PT [address] [place] [phone] 02/03/2024 9:45 AM CDT Appointment 34 [facility]INIC PHYSICAL THERAPY [address] [place] [address] Siomara Mcgarry, PT [address] [place] [address] documented as of this encounter Visit Diagnoses Not on filedocumented in this encounter Care Teams Blood Donor Recruiter Supervisor Relationship Specialty Start Date End Date Toby Barbosa MD [address]05 [place] [address] PCP - General Family Medicine 08/18/23 documented as of this encounter
--- OUTSIDE RECORDS SUMMARY | 2024-01-04 01:18 | XMS_ITS | Encounter Summary ---
Author Organization [facility] Address [address] [address] Phone Care Team Providers Care Detacker Name Role Phone Toby Barbosa MD Primary Care Provider [phone] Reason for Visit * Reason Comments Dizziness * Therapy (Routine) - Authorized Specialty Diagnoses / Procedures Referred By Kelvin tucker Referred To Contact Physical Therapy Diagnoses Asymmetrical hearing loss Pauline Lee, HOME OFFICE CLAIMS EXAMINER, CONE TRUCKER [address] [place] [address] Referral ID Status Reason Start Date Expiration Date V isits Requested Visits Authorized [id number] Authorized 10/20/2023 10/19/2024 99 99 Encounter Details Date Type Department Care Team (Late st Contact Info) Description 12/17/2023 2:30 PM CDT Office Visit [facility] [address] CLINIC PHYSICAL THERAPY [address] [place], [place] [phone] Christian Mcgarry, PT [address] [place] [address] Vertigo (Primary Dx) Social History Tobacco Use Types [...] often do you attend chur ch or cheondoism services? More than 4 times per year 06/22/2023 Do you belong to any clubs o r organizations such as anabaptist groups, unions, fraternal or athletic groups, or [...] Answer Date Recorded PHQ-2 Total 0 10/20/2023 [facility] of Occupat ional Health - Occupational [...] on file documented as of this encounter Progress Notes * Christian Mcgarry P, PT - 12/17/2023 2:30 PM CDT Physical Therapy Daily Note Visit: 2 SUBJECTIVE Patient reports that he has had no spinning episodes since last visit. Dizziness overall is much improved as well. Almost cancelled today's appointment but thought she should come for cahto. Home program compliance is good. Pain: No pain. Pain is not associated with this episode or with this problem. OBJECTIVE Benign paroxysmal positional vertigo testing: negative with chip karan pike x 3 to left and x 2 to right, roll test negative x 2 bilaterally. Gait: within normal limits Gait with head turns: mild deficit with diagonals down to right and up to left Treatment Today: Treatment today included neuromuscular reeducation. Walking with head turn routine: left right, up down, diagonals in both directions Educated on possible let vestibular hypofunction and treatment, prognosis, home program. Response to Education: Verbalized Understanding ASSESSMENT Response to Treatment: Good, benign paroxysmal positional vertigo is negative. May have mild hypofunction so provided withwalking with head turn routine Progress Towards Goals: Goals met PLAN OF CARE No further visits planned. Instructed to continue walking with head turn exercise daily for 6 weeks. If symptoms do return or worsen she can return to therapy as needed. Timed Code Treatment Minutes: 23 minutes Total Treatment Time: PT Therapeutic Procedures Time Entry (in minutes) Neuromuscular Re-Education Time Entry (CPT 07259): 23 PT Total Time: 23 Minutes Christian Mcgarry PT documented in this encounter Plan of Treatment Upcoming Encounters Date Type Department Care Team (Late st Contact Info) Description 01/11/2024 9:45 AM CDT Appointment [place] [address] CLINIC PHYSICAL THERAPY [address] [place] [address] Siomara Mcgarry, PT [address] [place] [address] 01/27/2024 3:30 PM CDT Appointment [facility] 34 CLINIC PHYSICAL THERAPY [address] [place] [address] Siomara Mcgarry, PT [address] [place] [phone] 01/29/2024 9:45 AM CDT Appointment [facility] 34 CLINIC PHYSICAL THERAPY [address] [place] [address] Siomara Mcgarry, PT [address] [place] [phone] 02/01/2024 9:45 AM CDT Appointment [facility] 34 CLINIC PHYSICAL THERAPY [address] [place] [address] Siomara Mcgarry, PT [address] [place] [address] 02/03/2024 9:45 AM CDT Appointment [facility] 34 CLINIC PHYSICAL THERAPY [address] [place] [address] Siomara Mcgarry, PT [address] [place] [address] documented as of this encounter Visit Diagnoses Diagnosis Vertigo- Primary Dizziness and giddiness documented in this encounter Care Teams Detacker Relationship Specialty Start Date End Date Toby Barbosa MD [address] [place] [address] PCP - General Family Medicine 08/18/23 documented as of this encounter
--- OUTSIDE RECORDS SUMMARY | 2024-01-04 01:18 | XMS_ITS | Encounter Summary ---
Author Organization [facility] Address [address] [address] Phone Care Team Providers Care Stock Puller Name Role Phone Toby Barbosa MD Primary Care Provider [phone] Encounter Details Date Type Department Care Team (Late st Contact Info) Description 10/20/2023 11:00 AM CDT Office Visit [facility] [address] [place] [address] Mike Woodward, Felix [address] [place] [address] Sensory hearing loss, bilateral (Primary Dx) Social History Tobacco Use Types [...] week 06/22/2023 How often do you attend [facility] or denominational services? More than 4 times per year 06/22/2023 Do you belong to any clubs o r organizations such as sikhism groups, unions, fraternal or athletic groups, or [...] Answer Date Recorded PHQ-2 Total 0 10/20/2023 [facility] of Occupat ional Health - Occupational Stress [...] as of this encounter Progress Notes * Mike Woodward, Felix - 10/20/2023 11:00 AM CDT Elvia Monroy is a(n) 63 year old referred for hearing testing. Ms. Monroy presents with communication difficulty, and hearing loss. Medical History Ms. Monroy reports the following: She describes a history of hearing loss, she has worn hearing aids for the last 10 years. She is currently wearing a set of [employer] BHAVIN aids. Strong family history ofhearing loss. Has had tinnitus for many years. Recently had a vertigo episode and is now experiencing dizziness. Was told by chiropractor that fluid was noted behind tympanic membranes. The purpose of today's appointment was to evaluate Ms. Monroy's current hearing sensitivity. Audiologic Results: OTOSCOPY: Right ear: Clear canals, tympanic membranes visualized and appear intact. Left ear: Clear canals, tympanic membranes visualized and appear intact. TYMPANOMETRY: Right ear: Type A, Normal pressure and admittance. Left ear: Type A, Normal pressure and admittance. Today's evaluation was conducted using conventional audiometry under headphones with good reliability. Pure tone testing revealed a a moderate gently sloping to severe Sensorineural hearing loss bilaterally. Speech recognition scores (SRT) were in good agreement with pure tone measures and word recognition scores were 100 % in the right ear and 72% in the left ear at 40 dB sensation level with res pect to SRT. See scanned audiogram for details. Impressions: Today's evaluation reveals that Ms. Monroy has peripheral hearing sensitivity revealing a moderate gently sloping to severe Sensorineural hearing loss bilaterally . Asymmetrical word discrimination scores with the left ear being worse. Previous [employer] hearing test also had worsening discrimination in the left ear at 56%. Recommendations: Given today's results it is recommended that Ms. Monroy see Otolaryngology for further consult following today's visit. The results and recommendations of today's testing were discussed with Ms. Monroy. It was a pleasure meeting and working with Ms. Monroy today. Thank you for allowing us to participate in this patient's care. documented in this encounter Plan of Treatment Upcoming Encounters Date Type Department Care Team (Late st Contact Info) Description 01/11/2024 9:45 AM CDT Appointment [place] [address] CLINIC PHYSICAL THERAPY [address] [place] [address] Siomara Mcgarry, PT [address] [place] [address] 01/27/2024 3:30 PM CDT Appointment [facility] 34 CLINIC PHYSICAL THERAPY [address] [place] [address] [phone] Simoara Mcgarry, PT [address] [place] [phone] 01/29/2024 9:45 AM CDT Appointment [facility] 34 CLINIC PHYSICAL THERAPY [address] [place] [address] Siomara Mcgarry, PT [address] [place] [phone] 02/01/2024 9:45 AM CDT Appointment [facility] 34 CLINIC PHYSICAL THERAPY [address] [place] [address] Siomara Mcgarry, PT [address] [place] [phone] 02/03/2024 9:45 AM CDT Appointment [place] [address] [facility] PHYSICAL THERAPY [address] [place] [address] Siomara Mcgarry, PT [address] [place] [phone] documented as of this encounter Procedures Procedure Name Priority Date/Time Associated Diagnosis Comments TYMPANOMETRY Routine 10/20/2023 12:00 AM CDT Sensory hearing loss, bilateral COMPREHENSIVE HEARING TEST Routine 10/20/2023 12:00 AM CDT Sensory hearing loss, bilateral documented in this encounter Results * TYMPANOMETRY (10/20/2023 12:00 AM CDT) 10/20/2023 Mike [facility] PROCEDURES * COMPREHENSIVE HEARING TEST (10/20/2023 12:00 AM CDT) 10/20/2023 Mike [facility] PROCEDURES documented in this encounter Visit Diagnoses Diagnosis Sensory hearing loss, bilateral- Primary documented in this encounter Care Teams Stock Puller Relationship Specialty Start Date End Date Toby Barbosa MD [address] [place] [address] PCP - General Family Medicine 08/18/23 documented as of this encounter
--- OUTSIDE RECORDS SUMMARY | 2024-01-04 01:18 | XMS_ITS | Encounter Summary ---
Author Organization [facility] Address [address] [address] Phone Care Team Providers Care Commercial Fishing Vessel Operator Name Role Phone Toby Barbosa MD Primary Care Provider [phone] Encounter Details Date Type Department Care Team (Latest Contact Info) Description 11/30/2023 Travel Social History Tobacco Use Types Packs/Day [...] often do you attend chur ch or spiritism services? More than 4 times per year 06/22/2023 Do you belong to any clubs o r organizations such as episcopal groups, unions, fraternal or athletic groups, or [...] Answer Date Recorded PHQ-2 Total 0 10/20/2023 [facility] - Occupational Stress Questionnaire Answer Date [...] Info) Description 01/11/2024 9:45 AM CDT Appointment [place] [address] [facility]IC PHYSICAL THERAPY [address] [place] [address] Siomara Mcgarry, PT [address] [place] [address] 01/27/2024 3:30 PM CDT Appointment [facility] 34 CLINIC PHYSICAL THERAPY [address] [place] [address] Siomara Mcgarry, PT [address] [place] [phone] 01/29/2024 9:45 AM CDT Appointment [facility] 34 CLINIC PHYSICAL THERAPY [address] [place] [address] Siomara Mcgarry, PT [address] [place] [address] 02/01/2024 9:45 AM CDT Appointment [facility] 34 CLINIC PHYSICAL THERAPY [address] [place] [address] [phone] Siomara Mcgarry, PT [address] [place] [address] 02/03/2024 9:45 AM CDT Appointment [facility] 34 CLINIC PHYSICAL THERAPY [address] [place] [address] [phone] Siomara Mcgarry, PT [address] [place] [address] documented as of this encounter Visit Diagnoses Not on filedocumented in this encounter Care Teams Commercial Fishing Vessel Operator Relationship Specialty Start Date End Date Toby Barbosa MD [address] [place] [address] PCP - General Family Medicine 08/18/23 documented as of this encounter
--- OUTSIDE RECORDS SUMMARY | 2024-01-04 01:18 | XMS_ITS | Encounter Summary ---
Author Organization [facility] Address [address] [address] Phone Care Team Providers Care Drug Inspector Name Role Phone Toby Barbosa MD Primary Care Provider [phone] Encounter Details Date Type Department Care Team (Latest Contact Info) Description 12/17/2023 Travel Social History Tobacco Use Types Packs/Day [...] often do you attend chur ch or religion services? More than 4 times per year 06/22/2023 Do you belong to any clubs o r organizations such as mandaeism groups, unions, fraternal or athletic groups, or [...] Answer Date Recorded PHQ-2 Total 0 10/20/2023 [facility] - Occupational Stress Questionnaire Answer [...] Info) Description 01/11/2024 9:45 AM CDT Appointment [place] [address] [facility] PHYSICAL THERAPY [address] [place] [address] Siomara Mcgarry, PT [address] [place] [address] 01/27/2024 3:30 PM CDT Appointment [facility] 34 CLINIC PHYSICAL THERAPY [address] [place] [address] Siomara Mcgarry, PT [address] [place] [phone] 01/29/2024 9:45 AM CDT Appointment [facility] 34 CLINIC PHYSICAL THERAPY [address] [place] [address] Siomara Mcgarry, PT [address] [place] [address] 02/01/2024 9:45 AM CDT Appointment [facility] 34 CLINIC PHYSICAL THERAPY [address] [place] [address] [phone] Siomara Mcgarry, PT [address] [place] [address] 02/03/2024 9:45 AM CDT Appointment [facility] 34 CLINIC PHYSICAL THERAPY [address] [place] [address] [phone] Siomara Mcgarry, PT [address] [place] [address] documented as of this encounter Visit Diagnoses Not on filedocumented in this encounter Care Teams Drug Inspector Relationship Specialty Start Date End Date Toby Barbosa MD [address] [place] [address] PCP - General Family Medicine 08/18/23 documented as of this encounter
--- OUTSIDE RECORDS SUMMARY | 2024-01-04 01:18 | XMS_ITS | Encounter Summary ---
Author Organization [facility] Address [address] [address] Phone Care Team Providers Care Endoscopic Technician Name Role Phone Toby Barbosa MD Primary Care Provider [phone] Reason for Visit * Reason Comments Dizziness * Therapy (Routine) - Authorized Specialty Diagnoses / Procedures Referred By Kelvin tucker Referred To Contact Physical Therapy Diagnoses Asymmetrical hearing loss Pauline Lee, AGENCY SERVICE REPRESENTATIVE, STEWARD/STEWARDESS NIGHT [address] [place] [address] Referral ID Status Reason Start Date Expiration Date V isits Requested Visits Authorized [id number] Authorized 10/20/2023 10/19/2024 99 99 Encounter Details Date Type Department Care Team (Late st Contact Info) Description 11/18/2023 12:30 PM CDT Office Visit [facility] [address] CLINIC PHYSICAL THERAPY [address] [place], [place] [address] Christian Mcgarry, PT [address] [place] [address] Dizziness (Primary Dx); Vertigo Social History Tobacco Use Types Packs/Day Years [...] How often do you attend chur or alevism services? More than 4 times per year 06/22/2023 Do you belong to any clubs o r organizations such as advent groups, unions, fraternal or athletic groups, or [...] Answer Date Recorded PHQ-2 Total 0 10/20/2023 [facility] of Occupat ional Health - [...] Info) Description 01/11/2024 9:45 AM CDT Appointment [facility] 34 CLINIC PHYSICAL THERAPY [address] [place] [address] Siomara Mcgarry, PT [address] [place] [address] 01/27/2024 3:30 PM CDT Appointment [facility] 34 CLINIC PHYSICAL THERAPY [address] [place] [address] Siomara Mcgarry, PT [address] [place] [phone] 01/29/2024 9:45 AM CDT Appointment [facility] 34 CLINIC PHYSICAL THERAPY [address] [place] [address] Siomara Mcgarry, PT [address] [place] [address] 02/01/2024 9:45 AM CDT Appointment [facility] 34 CLINIC PHYSICAL THERAPY [address] [place] [address] Siomara Mcgarry, PT [address] [place] [phone] 02/03/2024 9:45 AM CDT Appointment [facility] 34 CLINIC PHYSICAL THERAPY [address] [place] [address] Siomara Mcgarry, PT [address] [place] [address] documented as of this encounter Visit Diagnoses Diagnosis Dizziness- Primary Dizziness and giddiness Vertigo Dizziness and giddiness documented in this encounter Care Teams Endoscopic Technician Relationship Specialty Start Date End Date Toby Barbosa MD [address] [place] [address] PCP - General Family Medicine 08/18/23 documented as of this encounter
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
--- OUTSIDE RECORDS SUMMARY | 2024-01-04 01:18 | XMS_ITS | Encounter Summary ---
Author Organization [facility] Address [address] [address] Phone Care Team Providers Care Occupational Therapist Aide Name Role Phone Toby Barbosa MD Primary Care Provider [phone] Reason for Referral * Therapy (Routine) - Authorized Specialty Diagnoses / Procedures Referred By Kelvin tucker Referred To Contact Physical Therapy Diagnoses Asymmetrical hearing loss Pauline Lee APRN, CNP [address] [place] [address] Referral ID Status Reason Start Date Expiration Date V isits Requested Visits Authorized [id number] Authorized 10/20/2023 10/19/2024 99 99 Question Answer Orders for Therapy Evaluation and Treatment What type of Physical Therapy are you looking for? (Primary Concern - Choose from options provided or type in a darden word i.e. Concussion) Vestibular/Dizziness/Vertigo/BPPV [14] Comments Place additional details, restriction details, or secondary concerns here: * Diagnostic (Routine) - Closed Specialty Diagnoses / Procedures Referred By Kelvin tucker Referred To Contact Radiology Diagnoses Asymmetrical hearing loss Procedures MR IAC WO W CONTRAST Pauline Lee APRN, CNP [address] [place] [address] Referral ID Status Reason Start Date Expiration Date Visits Re quested Visits Authorized [id number] Closed 10/20/2023 01/19/2025 1 1 Reason for Visit * Reason Comments Consult Fluid level Behind T ymp Membrane * Office Visit (Routine) - Pending Review Specialty Diagnoses / Procedures Referred By Contac t Referred To Contact Ent-Otolaryngology Diagnoses Fluid level behind tympanic membrane of both ears Toby Barbosa MD [address] [place] [address] Referral ID Status Reason Start Date Expiration Date V isits Requested Visits Authorized [id number] Pending Review 08/10/2023 08/09/2024 1 1 Encounter Details Date Type Department Care Team (Late st Contact Info) Description 10/20/2023 12:00 PM CDT Office Visit [facility] OTOLARYNGOLOGY [address] [place] [address] Pauline Lee APRN, [facility] [place] [address] Asymmetrical hearing loss (Primary Dx); Dizziness; Sensorineural hearing loss (SNHL) of both ears Social History Tobacco Use Types Packs/Day Years [...] often do you attend chur ch or druze services? More than 4 times per year 06/22/2023 Do you belong to any clubs o r organizations such as religion groups, unions, fraternal or athletic groups, or [...] Answer Date Recorded PHQ-2 Total 0 10/20/2023 [facility] - Occupational Stress Questionnaire Answer Date [...] Sign Reading Time Taken Comments Blood Pressure 125/74 10/20/2023 11:37 AM CDT Pulse 58 10/20/2023 11:37 AM CDT Temperature 36.7 ??C (98.1 ??F) 10/20/2023 11:37 AM C DT Respiratory Rate - - Oxygen Saturation - - Inhaled Oxygen Concentration - - Weight - - Height - - Body Mass Index - - documented in this encounter Consult Notes * Pauline Lee, SUPERVISOR CONDITIONING YARD, POWDERER - 10/20/2023 12:00 PM CDT Subjective: Elvia Monroy is a 63 year old female who is referred by Toby Barbosa for possible fluid to the middle ear and dizziness. Patient reports that in August she developed an episode of significant dizziness that started when she got up out of bed and lasted residually for about 1 week including nausea and unsteadiness. Patient reports that since then she will have off-and-on episodes of imbalance often times with change in position or movement of her head. She denies that turning in bed causes symptoms to start. She denies significant room spinning sensation rather more of a lightheaded imbalance.Patient denies significant ear pressure. She does have a history of mixed hearing loss which she has worn hearing aids for many years now. She denies any increased tinnitus with episodes of dizziness, though does have fluctuating tinnitus at baseline. 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 She did have a hearing test completed at [facility] about 1 and 1/2 years ago in which she was found to have re duced discrimination in the 50th percentile to the left ear. Patient [...] any ongoing numbness or tingling to the leftside along with no change in vision. She does report new onset of headaches and visual changes since the symptoms began. Lastly patient does endorse a history of seasonal environmental allergies which she does take Claritin regularly. Patient Active Problem List Diagnosis Recurrent herpes labialis Osteoarthritis Hyperlipidemia Current Outpatient Medications Medication Sig Dispense Refill Multiple Vitamin (MULTIVITAMIN ADULT OR) Take 1 Tablet by mouth one time a day. [place]-3 Fatty Acids (FISH OIL OR) Take 1 Capsule by mouth one time a day. [place] 3 1500 mg, EPA 850 mg, DHA [...] Tablet by mouth one time a day. B-Me[place] NEW DRUG 1 Each two times a [...] date: 04/20/1974 Quit date: 04/20/1988 Years since quittin.5 Passive exposure: Past Smokeless tobacco: Never Vaping Use Vaping status: Never Used Substance and Sexual Activity Alcohol use: Yes Alcohol/week: 2.5 standard drinks of alcohol Types: 3 drink(s) per week Drug use: No Sexual activity: Yes Partners: Male Other Topics Concern Not on file Social History Narrative Not on file Social Determinants of Health Financial Resource Strain: Low Risk (06/27/2022) [facility] Strain Difficulty of Paying Living Expenses: 3 Difficulty of Paying Living Expenses: Not on file Food Insecurity: No Food Insecurity (06/27/2022) [facility], [facility] Food Insecurity Worried About Running Out of Food in the Last Year: 1 Transportation Needs: No Transportation Needs (06/27/2022) [facility] Transportation Needs Lack of Transportation (Medical): 1 Physical Activity: Insufficiently Active (06/22/2023) Exercise Vital Sign Days of Exercise per Week: 2 days Minutes of Exercise per Session: 60 min Stress: Stress Concern Present (06/22/2023) [facility] [place] [facility] - Occupational Stress Questionnaire Feeling of Stress : To some extent Social Connections: Unknown (07/01/2023) [facility] Frequency of Communication with Friends and Family: Not on file Intimate Partner Violence: Not on file Housing Stability: Low Risk (06/27/2022) [facility] Housing Stability Unable to Pay for Housing in the Last Year: 1 Family History Problem Relation Name Age of Onset Hypothyroidism Mother Hypothyroidism Brother Hypothyroidism Sister Hypothyroidism Daughter Breast Cancer Maternal Grandmother Lipid Elevation Mother Colon Cancer Father Cancer Paternal Grandfather pancreatic Cardiovascular Disease Paternal Grandfather Review of Systems See HPI for pertinent findings. Objective: Vitals: 10/20/23 1137 BP: 125/74 Pulse: 58 Temp: 36.7 ??C (98.1 ??F) General: Patient is in no acute distress. [...] structures midline without an acquired abnormality. Negative [place] and no evidence of nasal valve collapse. [...] Neurologic: Cranial nerves II-XII grossly intact. Negative Nova-Hallpike maneuver (mild dizziness without nystagmus to the left side). Head and Neck Skin: no hyperpigmentation, vitiligo, or suspicious lesions. Personally reviewed and agree with the following [...] discrimination in the left ear at 56%. Rinne: Left: AC>BC at 256, 512, 1024 Right: AC>BC at 256, 512, 1024 Assessment: -Discussed with the patient possible etiologies of dizziness including central versus peripheral causes of vertigo. -Patient does have a discrepancy in discrimination scores showing 72% to the left ear today and 100% on the right ear. -Explained to patient that the next step in care would be to consider VNG testing versus an MRI of the internal auditory canals. Patient's notes that headaches, dizziness with turning to the left, and change in discrimination, MRI would be a reasonable option at this time. Orders were placed and wewill follow-up following testing. -Other considerations include possible perilymph fistula or cochlear injury, related to her previous head injury. -Orders for procedure rehabilitation were also placed for the patient to be completed in [place] as she does not fear following due to her unsteadiness. documented in this encounter Plan of Treatment Upcoming Encounters Date Type Department Care Team (Late st Contact Info) Description 01/11/2024 9:45 AM CDT Appointment [facility] 34 [facility] PHYSICAL [facility]Y [address] [place] [address], [place] [address] Siomara Mcgarry, PT [address] [place] [phone] 01/27/2024 3:30 PM CDT Appointment [place] [address] [facility] [address] [place] [address] Siomara Mcgarry, PT [address] [place] [address] 01/29/2024 9:45 AM CDT Appointment [place] [address] [facility] [address] [place] [address] Siomara Mcgarry, PT [address] [place] [phone] 02/01/2024 9:45 AM CDT Appointment [facility] 34 [facility] [address] [place] [address] Siomara Mcgarry, PT [address] [place] [address] 02/03/2024 9:45 AM CDT Appointment [place] [address] [facility] [address] [place] [address] Siomara Mcgarry, PT [address] [place] [address] Scheduled Referrals Name Type Priority Associated Diagnoses Orde r Schedule APPT WITH [facility] REFERRAL Routine Asymmetrical hearing loss Ordered: 10/20/2023 documented as of this encounter Results * MR IAC WO W CONTRAST [...] Cooper MD 11/02/2023 3:56 PM Pauline Lee SUPERVISOR CONDITIONING YARD, POWDERER EC MRI ORDERA BLES documented in this encounter Visit Diagnoses Diagnosis Asymmetrical hearing loss- Primary Unspecified hearing loss Dizziness Dizziness and giddiness Sensorineural hearing loss (SNHL) of both ears Asymmetrical hearing loss Unspecified hearing loss documented in this encounter Care Teams Occupational Therapist Aide Relationship Specialty Start Date End Date Toby Barbosa MD [address] [place] [address] PCP - General Family Medicine 08/18/23 documented as of this encounter
--- OUTSIDE RECORDS SUMMARY | 2024-01-04 01:18 | XMS_ITS | Clinical Summary ---
Author Organization [facility] Address [place], [place] [address] Care Team Providers Care Bar Welder Name Role Phone Dilma Adler MD Primary Care Provide r Allergies Active Allergy Reactions Criticality Noted Date Comments Sulfa (Sulfonamide Antibiotics) Yeast Infection 02/07/2005 Patient states sensitivity Sulfacetamide Sodium Yeast Infection 06/04/2015 Adverse reaction Adhesive Tape Rash 02/07/2005 Patient states sensitivity Medications Medication Sig Dispensed Refills Start Date End Date Status acetaminophen (TYLENOL EXTRA STRENGTH) 500 mg tablet Take 2 tablets by mouth every 6 hours if needed. Max acetaminophen dose: 4000mg in 24 hrs. 0 06/09/2017 Active Kzukt-3-ZPR-EPA-Fish Oil (EPA-DHA 720) 290-430-1.4 mg-mg-gram cap Take 2 capsules by mouth 2 times daily. 0 06/09/2017 Active cholecalciferol (VITAMIN D-3) 2,000 unit capsule Take 1 capsule by mouth once daily. 0 06/09/2017 Active nitroglycerin (NITROSTAT) 0.4 mg sublingual tabletIndications:Ab normal cardiovascular stress test Place 1 tablet under the tongue every 5 minutes if needed for Chest Pain. 1 Bottle 3 06/30/2017 Active Magnesium Glycinate 100 mg tab Take 120 mg by mouth. 0 06/27/2022 Active medication order composer Take 5,000 mg/day by mouth once daily. Vitamin D3 5,000 IU with K2 100mcg 0 06/27/2022 Active medication order composer Take by mouth. Multi Vitamin Optimal + 8 capsule 0 06/27/2022 Active medication order composer Take by mouth. sustained release Melatonin 0 06/27/2022 Active medication order composer Take by mouth. C q 10 1000 mg BID 0 06/27/2022 Active medication order composer Take by mouth. Liposomal 4 drops put under the tongue daily 0 06/27/2022 Active medication order composer FEMMENESSENCE 2 capsules daily 0 06/27/2022 Active medication order composer Take by mouth. Lipo-gold 1 cap with meals 3x daily 0 06/27/2022 Active medication order composer Take by mouth. Glutathione 2 caps daily 0 06/27/2022 Active medication order composer Take by mouth. Magnesium citrate as needed for constipation 0 06/27/2022 Active Active Problems Patient Care Coordination No te Formatting of this note migh t be different from the original. HF/Structural/Prevention Research Eligibility Review Date: 04/11/19 Upcoming Visit Location: [facility] Age: 58 y.o. 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 10/01/2007 PVC (premature ventricular contraction) Overview (06/25/2005): s/p cardiac ablation on 02/22 Resolved Problems Problem Noted Date Diagnosed Date Resolved Date Lumbosacral spondylosis without myelopathy 10/01/2007 04/25/2013 CARDIOMYOPATHY 04/25/2013 Overview (06/24/2005): Secondary to frequent PVCs Immunizations Name Administration Dates Next Due AMB Influenza, IIV3 (Age >=3 years)(Flu Clinic Only) 02/13/2012 Hepatitis B (Adult) 11/10/2008,06/08/2008,2008 Influenza, IIV3 (Age >=3 years) 02/01/2013 Influenza, IIV4 02/04/2016 Td (Age >=7 Years) 05/14/2008,07/28/1995 Tdap 03/19/2018,05/10/2008 Tuberculin (PPD) 04/05/2018,03/19/2018 Zoster (Zostavax-ZVL, live) 06/21/2015 Family History Medical History Relation Name Comments Cancer-colon Father Cancer-breast Maternal Grandmother Aortic aneurysm Mother Hyperlipidemia Mother Stroke Mother Heart Disease Paternal Grandfather Relation Name Status Comments Father Maternal Grandmother Mother Paternal Grandfather Social History Tobacco Use Types Packs/Day Years Used Date Smoking Tobacco: Former Cigarettes 1 15 0 04/20/1973 - 04/20/1988 Smokeless Tobacco: Never Tobacco Cessation:Counseling Given: Yes Alcohol Use Standard Drinks/Week Comments Not Currently 0 (1 standard drink = 0.6 oz pur e alcohol) Quit 09/2021 PHQ-2 Answer Date Recorded PHQ-2 TOTAL SCORE 1 06/27/2022 Social Connections Answer Date Recorded Frequency of Communication with Friends and Fami ly Not on file 07/01/2023 Financial Resource Strain Answer Date R ecorded Difficulty of Paying Living Expenses 3 06/27/2022 Difficulty of Paying Living Expenses Not on file 06/27/2022 Food Insecurity Answer Date Recorded Worried About Running Out of Food in the Last Ye ar 1 06/27/2022 Transportation Needs Answer Date Record ed Lack of Transportation (Medical) 1 06/27/2022 Housing Stability Answer Date Recorded Unable to Pay for Housing in the Last Year 1 06/27/2022 Sex and Gender Information Value Date Recorded Sex Assigned at Not on file Gender Identity Not on file Sexual Orientation Not on file Obstetrics History Last Filed Vital Signs Vital Sign Reading Time Taken Comments Blood Pressure 115/68 06/27/2022 9:00 AM FARM EQUIPMENT SERVICE TECHNICIAN Pulse 76 06/27/2022 9:00 AM FARM EQUIPMENT SERVICE TECHNICIAN Temperature 36.4 ??C (97.5 ??F) 07/26/2019 8:38 AM CD T Respiratory Rate 18 05/31/2019 8:18 AM FARM EQUIPMENT SERVICE TECHNICIAN Oxygen Saturation 98% 06/27/2022 9:00 AM FARM EQUIPMENT SERVICE TECHNICIAN Inhaled Oxygen Concentration - - Weight 53.6 kg (118 lb 1.6 oz) 06/27/2022 9:00 A M FARM EQUIPMENT SERVICE TECHNICIAN Height 163.2 cm (5' 4.25) 06/27/2022 9:00 AM CS T Body Mass Index 20.11 06/27/2022 9:00 AM FARM EQUIPMENT SERVICE TECHNICIAN Plan of Treatment Health Maintenance Due Date Last Done Comments HIV for age 15-65 1973 Hepatitis C screening for ag e 18-79 1976 Colonoscopy through age 75 01/22/2011 01/22/2001 Zoster (shingles) series for age 50+ (2 of 3) 08/16/2015 06/21/2015 Pap test for age 21-65 04/19/2016 3, 08/21/2011, 08/02/2010, Additional history exists Mammogram for age 45-75 02/04/2020 02/04/20 19, 07/14/2017, 04/19/2013, Additional history exists Lipids for age 45-75 08/07/2022 08/07/2017, 05/12/2017, 09/18/2016, Additional history exists BMI (ht and wt on same day) for age 18+ 06/28/2023 06/27/2022, 05/31/2019, 04/15/2019, Additional history exists Depression screening for age 12+ 06/28/2023 06/27/2022, 06/14/2018, 05/12/2017, Additional history exists DEXA/DXA scan for age 65+ 07/07/2023 04/21/2019 Pneumococcal series for age 65+ (1 of 1 - PCV) 07/07/2023 COVID-19 vaccine series (1 - 2022- season) 2023 Influenza for age 65+ 12/20/2023 02/04/2016 , 02/01/2013, 02/13/2012 Tetanus booster 03/19/2028 03/19/2018, 04/21, 05/10/2008, Additional history exists Tdap Completed 03/19/2018, 05/10/2008 Procedures Procedure Name Priority Date/Time Associated Diagnosis Comments XR DXA BONE DENSITY 2 SITES AXIAL Routine 04/21/2019 12:00 AM FARM EQUIPMENT SERVICE TECHNICIAN Asymptomatic postmenopausal state SCAN-MAMMOGRAPHY REPORT 02/03/2019 12:00 AM CDT LIPID PANEL W REFLEX MEASURED LDL Routine 08/07/2017 11:48 AM CDT Hyperlipidemia, unspecified hyperlipidemia type COLOR MAKER THIN PREP PAP SCREEN IMAGED Routine 04/19/2013 4:51 PM FARM EQUIPMENT SERVICE TECHNICIAN Pap smear for cervical cancer screening SCAN-COLONOSCOPY 01/22/2001 12:0 0 AM CDT from Last 3 Months or Most Recently Relevant to Health Maintenance Results * XR DXA BONE DENSITY 2 SITES AXIAL (04/21/2019 12:00 AM FARM EQUIPMENT SERVICE TECHNICIAN) Anatomical Region Laterality Modality Spine, HIPS, HIPL, HIPR Other Dilma Adler MD DEXA * SCAN-MAMMOGRAPHY REPORT (02/03/2019 12:00 AM CDT) Anatomical Region Laterality Modality Other Scanner OTHER * (ABNORMAL) LIPID PANEL W REFLEX MEASURED LDL (08/07/2017 11:48 AM CDT) CHOLESTEROL,TOTAL 214(H) 100 - 199 mg/dL 08/07/2017 3:20 PM CDT [facility] TRIGLYCERIDES 170(H) <150 mg/dL 08/07/2017 3:20 PM CDT [facility] HDL CHOLESTEROL 59 >40 mg/dL 8 3:20 PM CDT [facility] NON-HDL CHOLESTEROL 155(H) <145 mg/dl 08/07/2017 3:20 PM CDT [facility] CHOL/HDL RATIO 3.63 <4.50 08/07/2017 3:20 PM CDT [facility] LDL CHOLESTEROL 121 <=130 mg/dL 08/07/2017 3:20 PM CDT [facility] TRAL LABORATORY PROVIDER ORDERED STATUS RANDOM 08/07/2017 3:20 PM CDT [facility] Blood BLOOD SPECIMEN / Unknown Butterfly / Unknown 08/07/2017 11:48 AM CDT 08/07/2017 11:48 AM CDT Dilma Adler MD CHEMISTRY [facility] [address] [place] [address], * COLOR MAKER THIN PREP PAP SCREEN IMAGED (04/19/2013 4:51 PM FARM EQUIPMENT SERVICE TECHNICIAN) CYTOLOGY CYTOPATHOLOGY REPORT [facility] Status: Final Status ?[id number] CLINICAL INFORMATION Last Date of LMP ? :04/08/2013 Last Pap Date ?:08/21/2011 Last Pap Result ?:NIL ABN [place]/Bx Past 5 YRS :None Hormone Usage ?:BCP/OCP/Patch/R ing Menstrual Status ? :Regular Periods [place]/Bx done today ? :No Additional Information :None given HPV Request ?:HPV if ASCUS SPECIMEN SOURCE ?:Cervical/vagina l ThinPrep Vial, screening SPECIMEN ADEQUACY ?:Satisfactory for evaluation Endocervical component ? present. INTERPRETATION/RES ULT Negative for intraepithelial lesion or malignancy (NIL) Other: Endometrial cells in a woman more than 40 years of age. (See Note) EDUCATIONAL NOTES AND SUGGESTIONS: Endometrial cells after the age of 40,particularly out of phase or after menopause,may be associated with benign endometrium, hormonal alterations and less commonly with endometrial uterine abnormalities. ??Endometrial cells correlate with the menstrual history provided. Cytology 1st Screener ??:cam Signed by ?: ??Edil Marlow M.D. Interpreted at [facility] This specimen was screened by the FDA approved ThinPrep Imaging System and manually reviewed. NOTE: ??The Pap test is a screening technique, not a diagnostic procedure. ??It is used ??primarily to screen for squamous cancers and precursor lesions. ??Published studies have shown that it is subject to both false negative and false positive results. ??The pap test should not be used as the sole means to diagnose or exclude pre-malignant and malignant lesions. COLLECTED:04/19/13 ? ACCESSIONED: ??04/21/13 ?? SIGNED: ??04/28/13 [facility] PAP [place] CODE NIL [facility] Tissue specimen (specimen) (Cervical/Vagina l) 04/19/2013 4:51 PM FARM EQUIPMENT SERVICE TECHNICIAN 04/19/2013 4:50 PM FARM EQUIPMENT SERVICE TECHNICIAN Narrative [facility] - 04/28/2013 1:45 PM FARM EQUIPMENT SERVICE TECHNICIAN Interpreted at [facility] Dilma Adler MD PATHOLOGY/CYT OLOGY [facility] INTERNAL ZIP [id number] [place] [address] * SCAN-COLONOSCOPY (01/22/2001 12:00 AM CDT) Narrative Procedure Note Scanner - 01/22/2001 12:00 AM CDT Scanner OTHER from Last 3 Months or Most Recently Relevant to Health Maintenance Advance Directives * Full Code (Latest Code Status on File) Date Activated Date Inactivated Comments 05/13/2013 2:57 PM 05/14/2013 3:15 PM * Full Code Date Activated Date Inactivated Comments 05/13/2013 8:51 AM 05/13/2013 2:57 PM * Full Code Date Activated Date Inactivated Comments 03/17/2005 9:07 AM 03/18/2005 9:13 PM * Full Code Date Activated Date Inactivated Comments 02/07/2005 12:50 PM 02/07/2005 9:14 PM Care Teams Bar Welder Relationship Specialty Start Date End Date Dilma Adler MD [address] [place] [address] PCP - General 03/10/05
--- OUTSIDE RECORDS SUMMARY | 2024-01-04 01:18 | XMS_ITS | Encounter Summary ---
Author Organization [facility] Address [address] [address] Phone Care Team Providers Care Manager Income Tax Name Role Phone Toby Barbosa MD Primary Care Provider [phone] Encounter Details Date Type Department Care Team (Late st Contact Info) Description 10/15/2023 - 10/15/2023 11:59 PM CDT Hospital Encounter OS FILMS DEPARTMENT Dana Toussaint I, PAThelma [address] [place] [address] Impingement syndrome, shoulder, right Discharge Disposition: Discharged Social History Tobacco Use Types Packs/Day Years [...] often do you attend chur ch or quaker services? More than 4 times per year 06/22/2023 Do you belong to any clubs o r organizations such as congregation groups, unions, fraternal or athletic groups, or [...] PHQ-2 Answer Date Recorded PHQ-2 Total 0 [facility]2023 [facility] - Occupational Stress Questionnaire Answer Date Recorded [...] on file documented as of this encounter Medications at Time of Discharge Medication Sig Dispensed Refills Start Date End Date Multiple Vitamin (MULTIVITAMIN ADULT OR) Take 1 Tablet by mouth one time a day. [place]-3 Fatty Acids (FISH OIL OR) Take 1 Capsule by mouth one time a day. [place] 3 1500 mg, EPA 850 mg, DHA [...] Tablet by mouth one time a day. B-[place] NEW DRUG 1 Each two times a day. Advance [place]ca NEW DRUG [address] Weathers Bittered #9 documented as of this encounter Discharge Disposition Disposition Code Departure Means Destination Discharged documented in this encounter Plan of Treatment Upcoming Encounters Date Type Department Care Team (Late st Contact Info) Description 01/11/2024 9:45 AM CDT Appointment [facility] CLINIC PHYSICAL THERAPY [address] [place] [address] Siomara Mcgarry, PT [address] [place] [address] 01/27/2024 3:30 PM CDT Appointment [place] [address] CLINIC PHYSICAL THERAPY [address] [place] [address] Siomara Mcgarry, PT [address] [place] [phone] 01/29/2024 9:45 AM CDT Appointment [facility]IC PHYSICAL THERAPY [address] [place] [address] Siomara Mcgarry, PT [address] [place] [address] 02/01/2024 9:45 AM CDT Appointment [facility] PHYSICAL THERAPY [address] [place] [address] Siomara Mcgarry, PT [address] [place] [address] 02/03/2024 9:45 AM CDT Appointment [facility] PHYS[facility]Y [address] [place] [address] Siomara Mcgarry, PT [address] [place] [address] documented as of this encounter Procedures Procedure Name Priority Date/Time Associated Diagnosis Comments OS XR FLUORO GUIDED INJECTION Routine 10/15/2023 12:00 AM CDT Impingement syndrome, shoulder, right documented in this encounter Results * OS XR FLUORO GUIDED INJECTION (10/15/2023 12:00 AM CDT) 10/15/2023 Narrative Procedure Note 10/16/2023 The actual exam was performed at [facility] on 10/15/2023. This exam does not have a report residing in this EMR. Please check for ascanned in report, Care Everywhere Outside Records, or call the performinglocation for the report. This order was placed into the system and automatically finalized on10/16/2023. Dana Toussaint PA-C EC OS FILMS AUDELIA GING ORDERABLES documented in this encounter Visit Diagnoses Diagnosis Impingement syndrome, shoulder, right documented in this encounter Care Teams Manager Income Tax Relationship Specialty Start Date End Date Toby Barbosa MD [address] [place] [address] PCP - General Family Medicine 08/18/23 documented as of this encounter
--- OUTSIDE RECORDS SUMMARY | 2024-01-04 01:18 | XMS_ITS | Encounter Summary ---
Author Organization [facility] Address [address] [address] Phone Care Team Providers Care Carbonation Equipment Operator Name Role Phone Toby Barbosa MD Primary Care Provider [phone] Reason for Visit * Reason Comments Recheck Rt shoulder Euflexxa #3 rt knee * Orthopedic Injection (Routine) - Closed Specialty Diagnoses / Procedures Referred By Kelvin t Referred To Contact Diagnoses Primary osteoarthritis of right knee Dana Toussaint PA-C [address] [place] [address] Dana Toussaint PA-C [address] [place] [address] Referral ID Status Reason Start Date Expiration Date Visits Re quested Visits Authorized [id number] Closed 09/09/2023 03/11/2024 3 3 Encounter Details Date Type Department Care Team (Late st Contact Info) Description 09/30/2023 10:00 AM CDT Office Visit [facility] CLINIC ORTHOPEDICS [address] [place] [address] Dana Toussaint PA-C [address] [place] [address] Impingement syndrome, shoulder, right (Primary Dx); Primary osteoarthritis of right knee Social History Tobacco Use Types Packs/Day Years [...] How often do you attend chur or scientologist services? More than 4 times per year 06/22/2023 Do you belong to any clubs o r organizations such as catholic groups, unions, fraternal or athletic groups, or [...] Answer Date Recorded PHQ-2 Total 0 09/30/2023 [facility] ional [facility] - Occupational Stress [...] Sign Reading Time Taken Comments Blood Pressure - - Pulse 66 09/30/2023 9:51 AM CDT Temperature 36.6 ??C (97.9 ??F) 09/30/2023 9:51 AM CD T Respiratory Rate - - Oxygen Saturation 98% 09/30/2023 9:51 AM CDT Inhaled Oxygen Concentration - - Weight 53.9 kg (118 lb 13.3 oz) 09/30/2023 9:51 AM CDT Height - - Body Mass Index 20.32 06/22/2023 1:50 PM CORRECTIONAL SECURITY OFFICER documented in this encounter Progress Notes * Dana Toussaint PA-C - 09/30/2023 10:00 AM CDT Ortho Progress Note: Primary Care: Toby Barbosa MD Chief Complaint Patient presents with Recheck Rt shoulder Euflexxa #3 rt knee Subjective: Elvia Monroy is a pleasant 63-year-old female presents orthopedic clinic for follow-up of right knee pain. She is here today for Euflexxa series 3 of 3. Patient also has chronic right shoulder pain. She underwent MRI scan and underwent a subacromial injection. The injection offered some results but it is a deep ache. Is not ready to do anything more aggressive at this time. Allergies Allergen Reactions Sulfa Drugs Adverse reaction Tape [Adhesive Tape] RASH Exam: Vitals: 09/30/23 0951 Pulse: 66 Temp: 36.6 ??C (97.9 ??F) Weight: 53.9 kg (118 lb 13.3 oz) SpO2: 98% General: WD/WN, resting comfortably in no apparent distress. Skin: Normal color. No apparent lesions or rashes. HEENT: NC/AT. Conjunctiva without erythema, pupils reactive. Hearing intact. Neck: Supple, trachea midline. Lungs: Unlabored breathing, symmetrical excusions. Cardiac: RR. Right lower extremity: Skin clean dry and intact. Distal neurovascular is intact. Impression: (M75.41) Impingement syndrome, shoulder, right (primary encounter diagnosis) (M17.11) Primary osteoarthritis of right knee Plan: Patient discussed regarding treatment. Will provide for Euflexxa series 3 of 3. Follow-up as neededfor the knee. Patient does have a near full-thickness tear of her rotator cuff with some component of AC arthritis. She is not ready to be more aggressive at this time. We discussed an injection through ultrasoundguidance in the glenohumeral joint on the right. Pending efficacy we could trial an injection to the AC joint. In the event that she fails conservative management we discussed visit with the surgeon to discuss rotator cuff repair with acromioplasty. documented in this encounter Procedure Notes * Dana Toussaint PA-C - 09/30/2023 10:00 AM CDT PROCEDURE: After discussing risks, benefits, options and alternatives including the risk of infection, bleeding, increased glucose levels, hyper/hypo pigmentation, sterile abcess, peripheral nerve damage, cartilage damage, arthritis, allergic reaction, more pain, less function, ligament tearing / da mage / rupture, need for further injections, continued pain, swelling, and other reactions, the patient wishes to proceed with a right knee injection. The correct side was verified with the patient and the knee was prepped sterilely with Chloraprep and the injection performed using euflexxa series 3 of 3 and 0.25% Marcaine. The patient tolerated the procedure well. There were no complications noted. Patient understand that if increased redness, increased warmth, inability to range, or purulent drainage occur, to come to the emergency room right away. documented in this encounter Plan of Treatment Upcoming Encounters Date Type Department Care Team (Late st Contact Info) Description 01/11/2024 9:45 AM CDT Appointment [facility] 34 CLINIC PHYSICAL THERAPY [address] [place], [place] [id number] Siomara Mcgarry, PT [address] [place] [address] 01/27/2024 3:30 PM CDT Appointment [place] [address] CLINIC PHYSICAL THERAPY [address] [place] [address], [place] [address] Siomara Mcgarry, PT [address] [place] [phone] 01/29/2024 9:45 AM CDT Appointment [place] [address] [facility] PHYSICAL THERAPY [address] [place] [address], [place] [address] Siomara Mcgarry, PT [address] [place] [phone] 02/01/2024 9:45 AM CDT Appointment [address] PHYSICAL THERAPY [address] [place] [address] Siomara Mcgarry, PT [address] [place] [phone] 02/03/2024 9:45 AM CDT Appointment [address] PHYSICAL THERAPY [address] [place] [address], [place] [address] Siomara Mcgarry, PT [address] [place] [phone] documented as of this encounter Procedures Procedure Name Priority Date/Time Associated Diagnosis Comments DRAIN/INJECT LARGE JOINT/BURSA Routine 09/30/2023 10:20 AM CDT Primary osteoarthritis of right knee documented in this encounter Results * OS XR FLUORO GUIDED INJECTION (10/15/2023 12:00 AM CDT) 10/15/2023 Narrative Procedure Note 10/16/2023 The actual exam was performed at [facility] on 10/15/2023. This exam does not have a report residing in this EMR. Please check for ascanned in report, Care Everywhere Outside Records, or call the performinglocation for the report. This order was placed into the system and automatically finalized on10/16/2023. Dana Toussaint PA-C EC OS FILMS AUDELIA GING ORDERABLES documented in this encounter Visit Diagnoses Diagnosis Impingement syndrome, shoulder, right- Primary Primary osteoarthritis of right knee Primary localized osteoarthrosis, lower leg Impingement syndrome, shoulder, right documented in this encounter Administered Medications Inactive Administered Medications Medication Order MAR Action Action Date Dose Rate Site sodium hyaluronate (Viscosup) (Hyalgan, Euflexxa) 20 MG/2ML injection 20 mg 20 mg, Intra-articular, ONCE WEEKLY, 3 doses, First dose on Thu09/09/23 at 0000, Last dose on Thu09/23/23 at 0000, Administration Charge. Please select one: Large Joint/Bursa, Will medication be administered at a different clinic location? No Given 09/30/2023 10:19 AM CDT 20 mg Given 09/23/2023 11:16 AM CDT 20 mg Given 09/09/2023 12:40 PM CDT 20 mg documented in this encounter Orders Procedures Count Last Ordered Date First Orde red Date DRAIN/INJECT LARGE JOINT/BURSA 1 09/30/2023 documented in this encounter Care Teams Carbonation Equipment Operator Relationship Specialty Start Date End Date Toby Barbosa MD [address] [place] [address] PCP - General Family Medicine 08/18/23 documented as of this encounter
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
--- OUTSIDE RECORDS SUMMARY | 2024-01-04 01:18 | XMS_ITS | Encounter Summary ---
Author Organization [facility] Address [address] [address] Phone Care Team Providers Care Senior Accounting Associate Name Role Phone Toby Barbosa MD Primary Care Provider Encounter Details Date Type Department Care Team (Latest Contact Info) Description 10/20/2023 Travel Social History Tobacco Use Types Packs/Day [...] often do you attend chur ch or gnosticist services? More than 4 times per year 06/22/2023 Do you belong to any clubs o r organizations such as nondenominational groups, unions, fraternal or athletic groups, or [...] Answer Date Recorded PHQ-2 Total 0 10/20/2023 [facility] - Occupational Stress Questionnaire Answer Date [...] Info) Description 01/11/2024 9:45 AM CDT Appointment [place] [address] CLINIC PHYSICAL THERAPY [address] [place] [address] Siomara Mcgarry, PT [address] [place] [address] 01/27/2024 3:[address] [facility] 34 CLINIC PHYSICAL THERAPY [address] [place] [address] Siomara Mcgarry, PT [address] [place] [phone] 01/29/2024 9:[address] [facility] 34 CLINIC PHYSICAL THERAPY [address] [place] [address] Siomara Mcgarry, PT [address] [place] [address] 02/01/2024 9:[address] [facility] 34 CLINIC PHYSICAL THERAPY [address] [place] [address] [phone] Siomara Mcgarry, PT [address] [place] [address] 02/03/2024 9:[address] [facility] 34 CLINIC PHYSICAL THERAPY [address] [place] [address] [phone] Siomara Mcgarry, PT [address] [place] [address] documented as of this encounter Visit Diagnoses Not on filedocumented in this encounter Care Teams Senior Accounting Associate Relationship Specialty Start Date End Date Toby Barbosa MD [address] [place] [address] PCP - General Family Medicine 08/18/23 documented as of this encounter
--- OUTSIDE RECORDS SUMMARY | 2024-01-04 01:18 | XMS_ITS | Encounter Summary ---
Author Organization [facility] Address [address] [address] Phone Care Team Providers Care Wellness Ambassador Name Role Phone Toby Barbosa MD Primary Care Provider Reason for Referral * Pain Center (Routine) - New Request Specialty Diagnoses / Procedures Referred By Contac garrett Referred To Contact Radiology Diagnoses Impingement syndrome, shoulder, right Procedures XR FLUORO GUIDE INJECTION Dana Toussaint PA-C [address] [place] [address] Referral ID Status Reason Start Date Expiration Date V isits Requested Visits Authorized [id number] New Request 12/30/2023 03/30/2025 1 1 * Therapy (Routine) - Authorized Specialty Diagnoses / Procedures Referred By Contalfred tucker Referred To Contact Physical Therapy Diagnoses Impingement syndrome, shoulder, right Dana Toussaint PA-C [address] [place] [address] Referral ID Status Reason Start Date Expiration Date V isits Requested Visits Authorized [id number] Authorized 12/30/2023 12/29/2024 99 99 Question Answer Orders for Therapy Evaluation and Treatment What type of Physical Therapy are you looking for? (Primary Concern - Choose from options provided or type in a darden word i.e. Concussion) Musculoskeletal/Orthopedic/Pain/Joint [8] What type of musculoskeletal/orthopedic/pain care? Shoulder/Upper Arm (Pain, Stiffness, Weakness) [13] Comments Place additional details, restriction details, or secondary concerns here: Reason for Visit * Reason Comments Recheck Rt knee, Right shoul andre pain NKI Encounter Details Date Type Department Care Team (Late st Contact Info) Description 12/30/2023 10:00 AM CDT Office Visit [facility] 34 CLINIC ORTHOPEDICS [address] [place] [phone] Dana Toussaint PA-C [facility] [place] [address] Primary osteoarthritis of right knee (Primary Dx); Impingement syndrome, shoulder, right Social History Tobacco Use Types Packs/Day Years [...] How often do you attend chur or yazdanism services? More than 4 times per year [...] Answer Date Recorded PHQ-2 Total 0 10/20/2023 [facility] - Occupational Stress Questionnaire Answer Date [...] Taken Comments Blood Pressure - - Pulse 67 12/30/2023 9:52 AM CDT Temperature 36.1 ??C (97 ??F) 12/30/2023 9:52 AM CDT Respiratory Rate - - Oxygen Saturation 98% 12/30/2023 9:52 AM CDT Inhaled Oxygen Concentration - - Weight 54.8 kg (120 lb 13 oz) 12/30/2023 9:52 AM CDT Height - - Body Mass Index 20.66 06/22/2023 1:50 PM MOUNTER SOUSAPHONES documented in this encounter Ordered Prescriptions Prescription Sig Dispensed Refills Start Date End Da te celecoxib (CeleBREX) 200 MG capsuleIndications:Primary osteoarthritis of right knee,Impingement syndrome, shoulder, right Take 1 Capsule by mouth one time a day. 31 Capsule 1 12/30/2023 documented in this encounter Progress Notes * Dana Toussaint PA-C - 12/30/2023 10:00 AM CDT Ortho Progress Note: Primary Care: Toby Barbosa MD Chief Complaint Patient presents with Recheck Rt knee, Right shoulder pain NKI Subjective: Elvia Monroy is a pleasant 63-year-old Pfeil presents orthopedic clinic for right knee pain as well as right shoulder pain. Intermittent left knee pain. Patient has chronic right shoulder pain. Underwent an MRI scan was found to have AC joint arthriticchange in conjunction with a near full-thickness tear. She responds moderately to injections. Last injection was into the glenohumeral joint. Patient also has intermittent left knee pain specifically with kneeling.'s over the inferior patellar bursa. There is no infection. It is intermittent and not constant. It will be a sharp pain and then it will subside. No prior problems. Patient also has right knee pain. Its constant. History of tibial plateau fracture treated conservatively on that side. Underwent injection with cortisone and Euflexxa. Noted the Euflexxa was less effective for her. Allergies Allergen Reactions Sulfa Drugs Adverse reaction Tape [Adhesive Tape] RASH Exam: Vitals: 12/30/23 0952 Pulse: 67 Temp: 36.1 ??C (97 ??F) Weight: 54.8 kg (120 lb 13 oz) SpO2: 98% General: WD/WN, resting comfortably in no apparent distress. Skin: Normal color. No apparent lesions or rashes. HEENT: NC/AT. Conjunctiva without erythema, pupils reactive. Hearing intact. Neck: Supple, trachea midline. Lungs: Unlabored breathing, symmetrical excusions. Cardiac: RR. Right lower extremity: Skin clean dry and intact. Distal neurovascular is intact. Tender palpation of the lateral joint line. Impression: (M17.11) Primary osteoarthritis of right knee (primary encounter diagnosis) (M75.41) Impingement syndrome, shoulder, right Plan: In regards to patient's knee will provide for repeat cortisone injection today. In the event that she fails conservative management I asked that she send me a [employer] message and I will order an MRI scan to look at the integrity of the meniscus and overall bone. In regards to her shoulder we will provide for an ultrasound and or x-ray guided injection into theright AC joint. In the event that she fails conservative management we will discuss with the surgeon to see if she be candidate for anything further. Patient wants to remain conservative and I believe this is feasible pending results from injection therapy. Patient also has some sensitivity over the infrapatellar bursa and/or tibial tuberosity. Likely some superficial nerve pathology in conjunction with the bursa. Continue with protective Knealing. Any worsening symptoms please notify the orthopedic clinic otherwise likely just sensitivity to that nerve area. documented in this encounter Procedure Notes * Dana Toussaint PA-C - 12/30/2023 10:00 AM CDT PROCEDURE: After discussing risks, [...] with Chloraprep and the injection performed using 0.25% Marcaine and 40 mg Kenalog. The patient tolerated the procedure well. There were no complications noted. Patient understand that if increased redness, increased warmth, inability to range, or purulent drainage occur, to come to the emergency room right away. documented in this encounter Plan of Treatment Upcoming Encounters Date Type Department Care Team (Late st Contact Info) Description 01/11/2024 9:45 AM CDT Appointment [address] PHYSICAL THERAPY [address] [place] [address] Siomara Mcgarry, PT [address] [place] [address] 01/27/2024 3:30 PM CDT Appointment [address] PHYSICAL THERAPY [address] [place] [address] Siomara Mcgarry, PT [address] [place] [address] 01/29/2024 9:45 AM CDT Appointment [place] [address] CLINIC PHYSICAL THERAPY [address] [place] [address] Siomara Mcgarry, PT [address] [place] [phone] 02/01/2024 9:45 AM CDT Appointment [place] [address] [facility]INIC PHYSICAL THERAPY [address] [place] [address] Siomara Mcgarry, PT [address] [place] [address] 02/03/2024 9:45 AM CDT Appointment [place] [address] [facility] PHYSICAL THERAPY [address] [place] [address] [phone] Siomara Mcgarry, PT [address] [place] [address] Scheduled Orders Name Type Priority Associated Diagnoses Orde r Schedule XR FLUORO GUIDE INJECTION Imaging Routine Impingement syndrome, shoulder, right Expected: 12/30/2023 (Approximate), Expires: 12/29/2024 Scheduled Referrals Name Type Priority Associated Diagnoses Orde r Schedule APPT WITH PHYSICAL THERAPY [facility] REFERRAL Routine Impingement syndrome, shoulder, right Ordered: 12/30/2023 documented as of this encounter Procedures Procedure Name Priority Date/Time Associated Diagnosis Comments DRAIN/INJECT LARGE JOINT/BURSA Routine 12/30/2023 10:12 AM CDT Primary osteoarthritis of right knee documented in this encounter Visit Diagnoses Diagnosis Primary osteoarthritis of right knee- Primary Primary localized osteoarthrosis, lower leg Impingement syndrome, shoulder, right documented in this encounter Orders Medications Ordered That Matias ht Not Have Been Administered Count Last Ordered Date First Ordered Date triamcinolone acetonide (Geoff alog-40) 40 MG/ML injection 40 mg 1 12/30/2023 Procedures Count Last Ordered Date First Orde red Date DRAIN/INJECT LARGE JOINT/BURSA 1 12/30/2023 documented in this encounter Care Teams Wellness Ambassador Relationship Specialty Start Date End Date Toby Barbosa MD [address] [place] [address] [place] [address] PCP - General Family Medicine 08/18/23 documented as of this encounter
--- OUTSIDE RECORDS SUMMARY | 2024-01-04 01:18 | XMS_ITS | Encounter Summary ---
Author Organization [facility] Address [address] [address] Phone Care Team Providers Care Installer Technician Name Role Phone Toby Barbosa MD Primary Care Provider [phone] Encounter Details Date Type Department Care Team (Latest Contact Info) Description 09/30/2023 Travel Social History Tobacco Use Types Packs/Day [...] often do you attend chur ch or jew services? More than 4 times per year 06/22/2023 Do you belong to any clubs o r organizations such as rastafarian groups, unions, fraternal or athletic groups, or [...] Answer Date Recorded PHQ-2 Total 0 09/30/2023 [facility] - Occupational Stress Questionnaire Answer [...] Info) Description 01/11/2024 9:45 AM CDT Appointment [place] [address] [facility] PHYSICAL THERAPY [address] [place] [address] Siomara Mcgarry, PT [address] [place] [address] 01/27/2024 3:30 PM CDT Appointment [facility] 34 CLINIC PHYSICAL THERAPY [address] [place] [address] Siomara Mcgarry, PT [address] [place] [phone] 01/29/2024 9:45 AM CDT Appointment [facility] 34 CLINIC PHYSICAL THERAPY [address] [place] [address] Siomara Mcgarry, PT [address] [place] [address] 02/01/2024 9:45 AM CDT Appointment [facility] 34 CLINIC PHYSICAL THERAPY [address] [place] [address] [phone] Siomara Mcgarry, PT [address] [place] [address] 02/03/2024 9:45 AM CDT Appointment [facility] 34 CLINIC PHYSICAL THERAPY [address] [place] [address] [phone] Siomara Mcgarry, PT [address] [place] [address] documented as of this encounter Visit Diagnoses Not on filedocumented in this encounter Care Teams Installer Technician Relationship Specialty Start Date End Date Toby Barbosa MD [address] [place] [address] PCP - General Family Medicine 08/18/23 documented as of this encounter
--- OUTSIDE RECORDS SUMMARY | 2024-01-04 01:18 | XMS_ITS | Encounter Summary ---
Author Organization [facility] Address [address] [address] Phone Care Team Providers Care Campground Attendant Name Role Phone Toby Barbosa MD Primary Care Provider [phone] Encounter Details Date Type Department Care Team (Latest Contact Info) Description 11/18/2023 Travel Social History Tobacco Use Types Packs/Day [...] often do you attend chur ch or shinto services? More than 4 times per year 06/22/2023 Do you belong to any clubs o r organizations such as voodoo groups, unions, fraternal or athletic groups, or [...] Answer Date Recorded PHQ-2 Total 0 10/20/2023 [facility] - Occupational Stress Questionnaire Answer Date [...] Info) Description 01/11/2024 9:45 AM CDT Appointment [place] [address] CLINIC PHYSICAL THERAPY [address] [place] [address] Siomara Mcgarry, PT [address] [place] [address] 01/27/2024 3:30 PM CDT Appointment [facility] 34 CLINIC PHYSICAL THERAPY [address] [place] [address] Siomara Mcgarry, PT [address] [place] [phone] 01/29/2024 9:45 AM CDT Appointment [facility] 34 CLINIC PHYSICAL THERAPY [address] [place] [address] Siomara Mcgarry, PT [address] [place] [address] 02/01/2024 9:45 AM CDT Appointment [facility] 34 CLINIC PHYSICAL THERAPY [address] [place] [address] [phone] Siomara Mcgarry, PT [address] [place] [address] 02/03/2024 9:45 AM CDT Appointment [facility] 34 CLINIC PHYSICAL THERAPY [address] [place] [phone] Siomara Mcgarry, PT [address] [place] [address] documented as of this encounter Visit Diagnoses Not on filedocumented in this encounter Care Teams Campground Attendant Relationship Specialty Start Date End Date Toby Barbosa MD [address] [place] [address] PCP - General Family Medicine 08/18/23 documented as of this encounter
--- OUTSIDE RECORDS SUMMARY | 2024-01-04 01:18 | XMS_ITS | Encounter Summary ---
Author Organization [facility] Address [address] [address] Phone Care Team Providers Care Shipper Name Role Phone Toby Barbosa MD Primary Care Provider Encounter Details Date Type Department Care Team (Latest Contact Info) Description 11/02/2023 Travel Social History Tobacco Use Types Packs/Day [...] often do you attend chur ch or anabaptist services? More than 4 times per year 06/22/2023 Do you belong to any clubs o r organizations such as sikh groups, unions, fraternal or athletic groups, or [...] Answer Date Recorded PHQ-2 Total 0 10/20/2023 [facility] - Occupational Stress Questionnaire [...] Info) Description 01/11/2024 9:45 AM CDT Appointment [place] [address] [facility] PHYSICAL THERAPY [address] [place] [address] Siomara Mcgarry, PT [address] [place] [address] 01/27/2024 3:30 PM CDT Appointment [facility] 34 CLINIC PHYSICAL THERAPY [address] [place] [address] Siomara Mcgarry, PT [address] [place] [phone] 01/29/2024 9:45 AM CDT Appointment [facility] 34 CLINIC PHYSICAL THERAPY [address] [place] [address] Siomara Mcgarry, PT [address] [place] [address] 02/01/2024 9:45 AM CDT Appointment [facility] 34 CLINIC PHYSICAL THERAPY [address] [place] [address] [phone] Siomara Mcgarry, PT [address] [place] [address] 02/03/2024 9:45 AM CDT Appointment [facility] 34 CLINIC PHYSICAL THERAPY [address] [place] [address] [phone] Siomara Mcgarry, PT [address] [place] [address] documented as of this encounter Visit Diagnoses Not on filedocumented in this encounter Care Teams Shipper Relationship Specialty Start Date End Date Toby Barbosa MD [address] [place] [address] PCP - General Family Medicine 08/18/23 documented as of this encounter
--- OUTSIDE RECORDS SUMMARY | 2024-01-04 01:18 | XMS_ITS | Encounter Summary ---
Author Organization [facility] Address [address] [address] Phone Care Team Providers Care Second Facing Baster Name Role Phone Toby Barbosa MD Primary Care Provider [phone] Reason for Visit * Diagnostic (Routine) - Closed Specialty Diagnoses / Procedures Referred By Kelvin tucker Referred To Contact Radiology Diagnoses Asymmetrical hearing loss Procedures MR IAC WO W CONTRAST Pauline Lee, [employer] MANAGER, KITCHEN STEWARDESS [address] [place] [address] Referral ID Status Reason Start Date Expiration Date Visits Re quested Visits Authorized [id number] Closed 10/20/2023 01/19/2025 1 1 Encounter Details Date Type Department Care Team (Late st Contact Info) Description 11/02/2023 1:00 PM CDT Ancillary Procedure [facility] [address] [facility] RADIOLOGY MRI [address] [place] [phone] Pauline Lee, [employer] MANAGER, KITCHEN STEWARDESS [address] [place] [address] Asymmetrical hearing loss Social History Tobacco Use Types Packs/Day Years [...] often do you attend chur ch or rastafari services? More than 4 times per year 06/22/2023 Do you belong to any clubs o r organizations such as gnosticism groups, unions, fraternal or athletic groups, or [...] Answer Date Recorded PHQ-2 Total 0 10/20/2023 [facility] - Occupational [...] Info) Description 01/11/2024 9:45 AM CDT Appointment [facility] PHYSICAL THERAPY [address] [place] [address] Siomara Mcgarry, PT [address] [place] [phone] 01/27/2024 3:30 PM CDT Appointment [facility] PHYSICAL THERAPY [address] [place] [address] Siomara Mcgarry, PT [address] [place] [phone] 01/29/2024 9:45 AM CDT Appointment [facility] PHYSICAL THERAPY [address] [place] [address] Siomara Mcgarry, PT [address] [place] [address] 02/01/2024 9:45 AM CDT Appointment [facility] PHYSICAL THERAPY [address] [place] [address] Siomara Mcgarry, PT [address] [place] [phone] 02/03/2024 9:45 AM CDT Appointment [facility] PHYSICAL THERAPY [address] [place] [address] Siomara Mcgarry, PT [address] [place] [phone] documented as of this encounter Procedures Procedure Name Priority Date/Time Associated Diagnosis Comments MR IAC WO W CONTRAST Routine 11/02/2023 2:07 PM CDT Asymmetrical hearing loss MR BRAIN WO W CONTRAST Routine 11/02/2023 2:07 PM CDT Asymmetrical hearing loss documented in this encounter Results * MR BRAIN WO W CONTRAST (11/02/2023 [...] Cooper MD 11/02/2023 3:56 PM Pauline Lee [employer] MA[employer]GER, KITCH[employer] STEWARDESS EC MRI ORDERA BLES * MR IAC WO W CONTRAST (11/02/2023 [...] Cooper MD 11/02/2023 3:56 PM Pauline Lee [employer] MANAGER, KITCH[employer] STEWARDESS EC MRI ORDERA BLES documented in this encounter Visit Diagnoses Diagnosis Asymmetrical hearing loss Unspecified hearing loss documented in this encounter Administered Medications Inactive Administered Medications Medication Order MAR Action Action Date Dose Rate Site gadobenate dimeglumine (Multihance) 529 MG/ML injection 10 mL 10 mL, IV Push, ONCE, 1 dose, On 11/02/23 at 1430 Given 11/02/2023 2:07 PM CDT 10 mL documented in this encounter Care Teams Second Facing Baster Relationship Specialty Start Date End Date Toby Barbosa MD [address] [place] [address] PCP - General Family Medicine 08/18/23 documented as of this encounter
[2024-01-04] MEDS: ASPIRIN 81 MG TAB.CHEW 324 MG PO (01:25)
[2024-01-04 01:32] LABS: D Dimer Quantitative* 0.86 ug/ml (0.00-0.50)
[2024-01-04 01:34] LABS: Anion Gap 7 mEq/L (7-15); Blood Urea Nitrogen* 19 mg/dL (7-30); Carbon Dioxide* 28 mmol/L (20-32); Chloride* 102 mmol/L (96-114); Creatinine* 0.7 mg/dL (0.5-1.5); Est. Creatinine Clearance* 46.59; Estimated Glomerular Filt Rate 96 ml/min; Potassium* 3.6 mmol/L (3.6-5.1); Sodium* 137 mmol/L (135-149)
[2024-01-04 01:35] LABS: Calcium* 9.3 mg/dL (8.4-10.6); Glucose* 108 mg/dL (60-115)
--- NOTE | 2024-01-04 01:35 | CRLHL7_ITS ---
For Patients: As a result of the Century Cures Act, medical imaging exams and procedure reports are released immediately into your electronic medical record. You may view this report before your referring provider. If you have questions, please contact your health care provider. Indication: Chest pain Technique: CTA of the chest following 95 mL Isovue 370 IV contrast. Comparison: None Findings: Pulmonary arteries: No pulmonary embolism appreciated. Lungs: No consolidation. No effusion. No pneumothorax. Few scattered pulmonary nodules, largest measuring 5 millimeters in the right lower lobe along the fissure. Bibasilar atelectasis and/or scarring. Mediastinum: Mild aneurysmal dilation of the ascending aorta measuring 4.0 centimeters. No acute abnormality appreciated. Calcified atherosclerosis of the aorta and coronary arteries. Lymph nodes: No gross lymphadenopathy. Upper abdomen: No acute abnormality appreciated. Soft tissues: No acute abnormality appreciated. Bones: No acute abnormality appreciated. Impression: 1. No acute abnormality appreciated. 2. Few scattered pulmonary nodules measuring up to [address] millimeters. Follow-up CT in 12 months may be considered for further evaluation. 3. Mild aneurysmal dilation of the ascending aorta measuring 4.0 centimeters. 4. Calcified atherosclerosis of the coronary arteries and aorta. Please note that all CT scans at this facility use dose modulation, iterative reconstruction, and/or weight-based dosing when appropriate to reduce radiation dose to as low as reasonably achievable. Dictated by Stanley Phillips MD @ 01/04/2024 2:56:00 AM (Electronically Signed)
[2024-01-04 01:45] LABS: Troponin I* < 0.01 ng/mL (0.01-0.04)
[2024-01-04] MEDS: KETOROLAC 15 MG/ML inj IVP (01:47)
[2024-01-04 01:48] LABS: PCR FLU A Negative PCR FLU A (Negative); PCR FLU B Negative PCR FLU B (Negative); PCR RSV Negative PCR RSV (Negative); SARS PCR* Negative SARS-CoV-2 (Negative)
[2024-01-04] MEDS: LACTATED RINGERS 1000 ML 1,000 ML IV (03:15)
[2024-01-04 03:32] LABS: Troponin I* < 0.01 ng/mL (0.01-0.04)
== END 2024-01-04 05:20 | disposition home or self-care (01) ==
PROVIDERS: Emergency Provider Student in an Organized Health Care Education/Training Program; PCP Family Medicine
DX: R07.89 Other chest pain (principal)
CPT/HCPCS: 36415; 71046; 71275; 80048; 84484; 85025; 85379; 87631; 93005; 96374; 99283; 99284; 99285; A9270; J1885; J7120; Q9967